=== PATIENT | female | born 1940 | race American Indian/Alaskan Native ===

== ENCOUNTER 2016-08-21 12:47 | Outpatient (CLI) | payer MEDICARE ==
[2016-08-21 13:08] LABS: INR 3.38 (0.87-1.13)
== END 2016-08-21 12:48 | disposition home or self-care (01) ==
LOC: LAB 12:47
PROVIDERS: ATTEND Surgery
DX: I48.91 Unspecified atrial fibrillation (principal)
CPT/HCPCS: 36415; 85610

== ENCOUNTER 2016-08-25 11:46 | Outpatient (CLI) | payer OTHER | END 2016-08-25 11:47 | disposition home or self-care (01) | LOC: FBHC 11:46 → LAB 11:46 → FBHC 11:47 → EDSTATUS 16:41 | PROVIDERS: ATTEND Surgery | DX: N63 Unspecified lump in breast (principal) | CPT/HCPCS: 88305 ==

== ENCOUNTER 2016-09-10 07:17 | Day surgery (SDC) | payer MEDICARE ==
[2016-09-10] MEDS ORDERED: ECOTRIN PO ONE (07:39)
[2016-09-10] MEDS ORDERED: NACL 0.9% 500 ML 500 ML IV SCH (08:00)
[2016-09-10 08:07] LABS: Hematocrit 33.5 % (30.3-42.9); Hemoglobin 10.7 gm/dl (10.1-14.3); Mean Corpuscular HGB Conc 32 % (30-34); Mean Corpuscular Hemoglobin 27 pg (28-32); Mean Corpuscular Volume 84 fl (79-97); Platelet Count 161 K/mm3 (140-440); Red Blood Count 3.98 M/mm3 (3.65-5.03); White Blood Count 3.1 K/mm3 (4.5-11.0)
[2016-09-10 08:12] LABS: Red Cell Distribution Width 26.1 % (13.2-15.2)
[2016-09-10 08:16] LABS: INR 1.2 (0.87-1.13)
[2016-09-10 08:31] LABS: Anion Gap 15 mmol/L; BUN/Creatinine Ratio 16.25; Blood Urea Nitrogen 13 mg/dL (7-17); Calcium 10.1 mg/dL (8.4-10.2); Carbon Dioxide 24 mmol/L (22-30); Chloride 105.8 mmol/L (98-107); Glucose 85 mg/dL (65-100); Sodium 141 mmol/L (137-145)
[2016-09-10] MEDS ORDERED: HEPARIN/NS 5000 UNIT/500ML(CATH LAB) 1,000 ML IR ONE (08:45)
[2016-09-10] MEDS: SUBLIMAZE ONE ×2 (08:56→09:19)
[2016-09-10] MEDS: VERSED ONE ×2 (08:56→09:19)
[2016-09-10] MEDS: XYLOCAINE 2% INFILTRATI ONE ×2 (08:57→09:22)
[2016-09-10 09:16] LABS: Basophils % (Manual) 0 % (0.0-1.8); Blastocytes % (Manual) 0 %; Eosinophils % (Manual) 0 % (0.0-4.3); Hypochromasia 1+
[2016-09-10 09:17] LABS: Poikilocytosis 1+; Target Cells Few
[2016-09-10 09:20] LABS: Diff Status Complete; Platelet Estimate Consistent w Auto; Schistocytes Few
[2016-09-10] MEDS ORDERED: APRESOLINE ONE (09:45)
--- NOTE | 2016-09-10 10:07 | Short Stay Summary ---
Short Stay Documentation Date of service: 09/10/16 - History H&P: obtained from office - Allergies and Medications Current Medications: Allergies kiwi Allergy (Verified 09/10/16 08:17) Swelling codeine Adverse Reaction (Verified 09/10/16 07:19) Itching FEELS STRANGE,DIZZINESS,NAUSEA MEDICAL TAPE Allergy (Uncoded 09/10/16 07:18) Rash,ITCHING,SORES Home Medications Medication Instructions Recorded Confirmed Last Taken Type Atorvastatin [Lipitor Tab] 80 mg PO QHS 02/17/16 09/10/16 09/09/16 History Enalapril Maleate [Vasotec] 20 mg PO DAILY 02/17/16 09/10/16 09/10/16 History Furosemide [Lasix] 20 mg PO QDAY 02/17/16 09/10/16 09/09/16 History Potassium Chloride [K-Dur] 20 meq PO QDAY #30 tablet 02/17/16 09/10/16 09/09/16 Rx Warfarin Sodium 4 mg PO DAILY 02/17/16 09/10/16 09/04/16 History Warfarin Sodium [Coumadin] 5 mg PO 2XW 02/17/16 09/10/16 09/01/16 History ALBUTEROL Inhaler [VENTOLIN 2 puff INHALATION DAILY PRN 09/10/16 09/10/16 History Inhaler] Metoprolol [Lopressor TAB] 50 mg PO BID 09/10/16 09/10/16 09/09/16 History Active Medications Sodium Chloride (Nacl 0.9% 500 Ml) 500 mls @ 50 mls/hr IV DIRECT CIARA Stop: 09/10/16 17:59 Last Admin: 09/10/16 08:17 Dose: 50 mls/hr - Physical exam General appearance: no acute distress Integumentary: no rash HEENT: Atraumatic Lungs: Clear to auscultation Breasts: deferred Heart: Regular rate Gastrointestinal: normal Female Genitourinary: deferred Rectal Exam: deferred Extremities: no ischemia Neurological: Normal gait - Brief post op/procedure progress note Date of procedure: 09/10/16 Pre-op diagnosis: Cardiomyopathy Post-op diagnosis: same Procedure: LHC, RHC, LV gram Anesthesia: MAC Findings: See report Surgeon: MARCOS COE Estimated blood loss: none Pathology: none Condition: stable - Hospital course Hospital course: Uneventful - Disposition Condition at discharge: Good Disposition: DISCHARGED TO HOME OR SELFCARE Short Stay Discharge Plan Activity: no driving until cleared by PCP (or 2 days) Weight Bearing Status: Non-Weight Bearing (for 2 days) Diet: low fat, low cholesterol, low salt Wound: keep clean and dry Follow up with: JAE STANLEY MD [Primary Care Provider] - 7 Days Forms: CardCath PCI D/C Instructions
--- NOTE | 2016-09-10 11:05 | Cardiac Catherization Report ---
LEFT HEART CATHETERIZATION AND RIGHT HEART CATHETERIZATION INDICATION: Cardiomyopathy. ORDERING PHYSICIAN: Kelly Newberry MD PROCEDURES PERFORMED: 1. Selective left and right coronary angiography. 2. Left ventriculography. 3. Right heart catheterization with hemodynamic measurement and oxygen saturation run. DESCRIPTION OF PROCEDURE: After obtaining written consent, the patient was draped using sterile technique. A 2% lidocaine was injected into the right groin. A 6-Kenyan vascular sheath was inserted into the right common femoral artery. An 8-Kenyan vascular sheath was inserted into the right common femoral vein. A 6-Kenyan JL4 catheter was used to selectively engage the left coronary artery. A 6-Kenyan JR4 catheter was used to selectively engage the right coronary artery. A 7-Kenyan [place]-Sam[place] catheter was used to measure right-sided hemodynamics and perform an oxygen saturation run. A 6-Kenyan pigtail catheter was used to perform a left ventriculogram. No complications occurred during the procedure. Hemostasis was achieved at the end of the procedure using 6-Kenyan Angio-Seal device. ESTIMATED BLOOD LOSS: Minimal. SPECIMEN REMOVED: None. TOTAL CONTRAST USED: 30 mL. CARDIAC STRUCTURES: The left ventricle is mildly dilated. There was moderate global left ventricular hypokinesis. The left ventricular ejection fraction is estimated at 30%. There is evidence of 1-2+ mitral regurgitation suggesting mild to moderate MR. HEMODYNAMICS: 1. The mean pulmonary capillary wedge pressure was 16 mmHg. 2. The mean pulmonary artery pressure was 28 mmHg. The pulmonary artery systolic pressure was 45 mmHg and the diastolic pressure was 16 mmHg. 3. The right ventricular systolic pressure was 44 mmHg and the right ventricular end-diastolic pressure was 5 mmHg. 4. The mean right arterial pressure was 7 mmHg. 5. The aortic pressure was 162/70 with an LV systolic pressure of 175 mmHg and left ventricular end-diastolic pressure of mmHg. 6. The superior vena cava saturation was 67%, pulmonary artery saturation was 65%, right ventricular saturation is 65%, right atrial saturation is 67%, and aortic saturation 90%. 7. The Seferino cardiac output was 6.91 L per minute with a cardiac index of 3.97 L per minute per m sq. CORONARY ANATOMY: 1. This is a right dominant circulation. 2. The left main is angiographically normal. 3. The LAD is angiographically normal. 4. The left circumflex artery is angiographically normal. 5. The right coronary artery is angiographically normal. IMPRESSION: 1. Angiographically normal coronary arteries. 2. Moderate global left ventricular hypokinesis with an ejection fraction estimated at 30%. 3. Mild to moderate mitral regurgitation. 4. Mildly elevated left-sided filling pressures with a mean pulmonary capillary wedge pressure of 16 mmHg and left ventricular end-diastolic pressure of mmHg. 5. Mild pulmonary venous hypertension with a mean PA pressure of 28 mmHg. 6. Preserved cardiac output and cardiac index. 7. No evidence of an intracardiac shunt. RECOMMENDATIONS: The patient will be recommended for continuation of her medical therapy for nonischemic cardiomyopathy. JOB# [id number] DIONNA/JOSELIN
[2016-09-10] MEDS ORDERED: ZOFRAN ONE (11:28)
[2016-09-10 11:50] VITALS: BP 147/74
[2016-09-10] MEDS ORDERED: ZOFRAN IV ONE (12:00)
== END 2016-09-10 12:31 | disposition home or self-care (01) ==
LOC: OPU 07:17
PROVIDERS: ATTEND Internal Medicine
DX: I42.9 Cardiomyopathy, unspecified (principal); I34.0 Nonrheumatic mitral (valve) insufficiency; I27.2 Other secondary pulmonary hypertension; M19.90 Unspecified osteoarthritis, unspecified site; I50.22 Chronic systolic (congestive) heart failure; I48.1 Persistent atrial fibrillation; Z79.01 Long term (current) use of anticoagulants
CPT/HCPCS: 36415; 80048; 85007; 85025; 85610; 85730; 93005; 93010; 93460; 96374; C1760; C1894; J0360; J1644; J2250; J2405; J3010; J7040; Q9967

== ENCOUNTER 2017-03-10 13:01 | Outpatient (CLI) | payer MEDICARE ==
--- NOTE | 2017-03-10 13:55 | Mammography Report ---
Bilateral mammogram: Compared to 03/07/16. CAD study utilized. Findings: Bilateral dense breast parenchyma. Bilateral benign calcifications. No distinct mass. Benign axilla. A Impression: Benign findings. Annual followup recommended. BI-RADS CATEGORY: 2 = Benign ACR BI-RADS MAMMOGRAPHIC CODES: 0 = Needs additional imaging evaluation; 1 = Negative; 2 = Benign; 3 = Probably benign; 4 = Suspicious; 5 = Malignant; 6 = Known biopsy-proven malignancy COMMENT: 1. Dense breast tissue, i.e., adenosis, fibrocystic changes, etc., may obscure an underlying neoplasm. 2. Approximately 10% of cancers are not detected with mammography. 3. A negative mammography report should not delay biopsy if a clinically suspicious mass is present. COMMENT: Patient follow-up letters are generated in [employer]. The
== END 2017-03-10 13:02 | disposition home or self-care (01) ==
LOC: SPVWC 13:01
PROVIDERS: ATTEND Surgery
DX: Z12.31 Encounter for screening mammogram for malignant neoplasm of breast (principal); I11.0 Hypertensive heart disease with heart failure; I50.9 Heart failure, unspecified; E78.00 Pure hypercholesterolemia, unspecified; I48.91 Unspecified atrial fibrillation; Z90.710 Acquired absence of both cervix and uterus
CPT/HCPCS: 77067; G0202

== ENCOUNTER 2017-07-13 16:20 | Emergency (ER) | payer MEDICARE ==
[2017-07-13] MEDS ORDERED: KEFLEX PO ONE (20:04)
[2017-07-13] MEDS ORDERED: TYLENOL PO ONE (20:04)
--- NOTE | 2017-07-13 20:06 | Emergency Department Report ---
ED Lower Extremity HPI - General Chief Complaint: Extremity Injury, Lower Stated Complaint: RIGHT LEG PAIN Time Seen by Provider: 07/13/17 19:36 Source: patient, family Mode of arrival: Ambulatory Limitations: No Limitations - History of Present Illness Initial Comments: Patient here reports that she hit her right ortega while getting in the back of an ambulance on 07/10/2017. Patient said that she was accompanying her family member to the hospital. Patient said she has bruises in and swelling to the area on her right ortega. He reports pain 8 out of 10 and a cane. No over-the- counter pain medication taken. Patient is on blood thinners for atrial fibrillation. She has a history of congestive heart failure and denies any chest pain or shortness of breath. She denies any cough. Denies any fever or chills. Pain is localized to injury site. She said pain is throbbing and worse with movement better with rest. Patient states she cannot take Motrin so she's been placing ice around the site. She is able to bear weight but reports that it's painful. Denies any numbness or tingling to extremities. She denies any fever or chills. Denies any nausea or vomiting. Denies any circulation problems. Denies any diabetes. Positive restriction in movement. MD Complaint: leg injury (rt leg pain from injury) Onset/Timin -: days(s) Injury: Leg: Right (injury with swelling, bruising and pain.) Type of Injury: blunt Place: street/outdoors Severity: severe Severity scale (0 -10): 10 Improves With: cold therapy Worsens With: weight bearing, movement, palpation Context: direct blow Associated Symptoms: swelling, ambulatory. denies: snap/pop sensation, numbness , tingling, unable to bear weight, able to partially bear weight Treatments Prior to Arrival: cold therapy - Related Data Home Medications Medication Instructions Recorded Confirmed Last Taken Atorvastatin [Lipitor] 80 mg PO QHS 02/17/16 09/10/16 09/09/16 Enalapril Maleate [Vasotec] 20 mg PO DAILY 02/17/16 09/10/16 09/10/16 Furosemide [Lasix TAB] 20 mg PO QDAY 02/17/16 09/10/16 09/09/16 Warfarin Sodium 4 mg PO DAILY 02/17/16 09/10/16 09/04/16 Warfarin Sodium [Coumadin] 5 mg PO 2XW 02/17/16 09/10/16 09/01/16 ALBUTEROL Inhaler(NF) [VENTOLIN 2 puff INHALATION DAILY PRN 09/10/16 09/10/16 Inhaler(NF)] Metoprolol [Lopressor TAB] 50 mg PO BID 09/10/16 09/10/16 09/09/16 Previous Rx's Medication Instructions Recorded Last Taken Type Potassium Chloride [K-Dur] 20 meq PO QDAY #30 tablet 02/17/16 09/09/16 Rx Acetaminophen [Tylenol Extra 500 mg PO Q8H PRN 4 Days #12 tablet 07/13/17 Unknown Rx Strength] Cephalexin [Keflex] 500 mg PO Q8HR 7 Days #21 cap 07/13/17 Unknown Rx Allergies Allergy/AdvReac Type Severity Reaction Status Date / Time kiwi Allergy Swelling Verified 09/10/16 08:17 codeine AdvReac Itching Verified 09/10/16 07:19 MEDICAL TAPE Allergy Rash,ITCHIN Uncoded 09/10/16 07:18 G,SORES ED Review of Systems ROS: Stated complaint: RIGHT LEG PAIN Other details as noted in HPI Comment: All other systems reviewed and negative Constitutional: no symptoms reported Respiratory: no symptoms reported Cardiovascular: denies: chest pain, palpitations, dyspnea on exertion, orthopnea , edema, syncope, paroxysmal nocturnal dyspnea Gastrointestinal: denies: abdominal pain, nausea, vomiting, diarrhea, constipation, hematemesis, melena, hematochezia Musculoskeletal: arthralgia. denies: back pain, joint swelling, myalgia Skin: denies: rash Neurological: denies: headache, weakness, numbness, paresthesias, confusion, abnormal gait, vertigo ED Past Medical Hx - Past Medical History Previous Medical History?: Yes Hx Hypertension: Yes Hx Congestive Heart Failure: Yes Hx Arthritis: Yes Additional medical history: afib, benign breast cysts, elevated cholesterol - Surgical History Past Surgical History?: Yes Additional Surgical History: hysterectomy, right knee - Family History Family history: no significant - Social History Smoking Status: Never Smoker Substance Use Type: None - Medications Home Medications: Home Medications Medication Instructions Recorded Confirmed Last Taken Type Atorvastatin [Lipitor] 80 mg PO QHS 02/17/16 09/10/16 09/09/16 History Enalapril Maleate [Vasotec] 20 mg PO DAILY 02/17/16 09/10/16 09/10/16 History Furosemide [Lasix TAB] 20 mg PO QDAY 02/17/16 09/10/16 09/09/16 History Potassium Chloride [K-Dur] 20 meq PO QDAY #30 tablet 02/17/16 09/10/16 09/09/16 Rx Warfarin Sodium 4 mg PO DAILY 02/17/16 09/10/16 09/04/16 History Warfarin Sodium [Coumadin] 5 mg PO 2XW 02/17/16 09/10/16 09/01/16 History ALBUTEROL Inhaler(NF) [VENTOLIN 2 puff INHALATION DAILY PRN 09/10/16 09/10/16 History Inhaler(NF)] Metoprolol [Lopressor TAB] 50 mg PO BID 09/10/16 09/10/16 09/09/16 History Acetaminophen [Tylenol Extra 500 mg PO Q8H PRN 4 Days #12 tablet 07/13/17 Unknown Rx Strength] Cephalexin [Keflex] 500 mg PO Q8HR 7 Days #21 cap 07/13/17 Unknown Rx ED Physical Exam - General Limitations: No Limitations General appearance: alert, in no apparent distress - Head Head exam: Present: atraumatic, normocephalic, normal inspection - Eye Eye exam: Present: normal appearance, PERRL, EOMI Pupils: Present: normal accommodation - ENT ENT exam: Present: normal exam, normal orophraynx, mucous membranes moist, TM's normal bilaterally. Absent: mucous membranes dry - Neck Neck exam: Present: normal inspection, full ROM. Absent: tenderness, meningismus, lymphadenopathy, thyromegaly - Respiratory Respiratory exam: Present: normal lung sounds bilaterally. Absent: respiratory distress, wheezes, rales, rhonchi, stridor, chest wall tenderness, accessory muscle use, decreased breath sounds, prolonged expiratory - Cardiovascular Cardiovascular Exam: Present: normal rhythm, irregular rhythm (, asymptomatic and stable irregularly regular), normal heart sounds. Absent: systolic murmur, diastolic murmur - GI/Abdominal GI/Abdominal exam: Present: soft, normal bowel sounds. Absent: distended, tenderness, guarding, rebound, rigid - Extremities Exam Extremities exam: Present: normal inspection, full ROM, tenderness (tenderness to palpate to right ortega anteriorly at injury site.), normal capillary refill, other (patient with no clubbing or cyanosis to extremities. Neurovascular compromise. +2 pulses all extremities. No joint deformity, crepitus or effusion. +5 strength all extremities. She denies the ambulates without any difficulties . with swelling to right leg.). Absent: pedal edema, joint swelling, calf tenderness - Expanded Lower Extremity Exam Right Hip exam: Present: normal inspection, full ROM, pelvic stability. Absent: tenderness, swelling, abrasion, laceration, ecchymosis, deformity, crepidus, dislocation, erythema, external rotation, internal rotation, shortening Upper Leg exam: Present: normal inspection, full ROM. Absent: tenderness, swelling, abrasion, laceration, ecchymosis, deformity, crepidus, dislocation, erythema Knee exam: Present: normal inspection, full ROM, full knee extension. Absent: tenderness, swelling, abrasion, laceration, ecchymosis, deformity, crepidus, dislocation, erythema, effusion, pain w/ pronation/supination, posterior draw sign, pain/laxity with valgus, pain/laxity with varus Lower Leg exam: Present: normal inspection, full ROM, tenderness, swelling ( patient with swelling to right lower leg mostly around injured sites but extended distally and proximally. Negative Homans sign and no calf tenderness) , ecchymosis, dislocation. Absent: abrasion, laceration, deformity, crepidus, erythema, palpable cord, Aaysuh's sign Ankle exam: Present: normal inspection, full ROM. Absent: tenderness, swelling , abrasion, laceration, ecchymosis, deformity, crepidus, dislocation, erythema, anterior draw sign Foot/Toe exam: Present: normal inspection, full ROM. Absent: tenderness, swelling, abrasion, laceration, ecchymosis, deformity, crepidus, dislocation, erythema, amputation, puncture wound, foreign body, calcaneal tenderness, tenderness at base of 5th metatarsal, nail avulsion, subungual hematoma Neuro vascular tendon exam: Present: no vascular compromise. Absent: pulse deficit, abnormal cap refill, motor deficit, sensory deficit, tendon deficit, extremity cold to touch, pallor, abnormal 2-point discrimination, decreased fine /light touch, foot drop, peroneal nerve deficit, significant pain with passive ROM of distal joint Gait: Positive: observed and limited by pain - Back Exam Back exam: Present: normal inspection, full ROM, other. Absent: tenderness, CVA tenderness (R), CVA tenderness (L), muscle spasm, paraspinal tenderness, vertebral tenderness, rash noted - Neurological Exam Neurological exam: Present: alert, oriented X3, normal gait, reflexes normal. Absent: motor sensory deficit - Psychiatric Psychiatric exam: Present: normal affect, normal mood - Skin Skin exam: Present: warm, dry, intact, ecchymosis (superficial ecchymotic area to right ortega area. Tender to palpate. Mild cellulitis.). Absent: normal color, rash, cyanosis, diaphoretic, erythema, urticaria, vesicles, pallor ED Course Vital Signs 07/13/17 16:22 Temperature 98.5 F Pulse Rate 75 Respiratory 16 Rate Blood Pressure 160/75 O2 Sat by Pulse 100 Oximetry - Reevaluation(s) Reevaluation #1: 07/13/17 21:46 given Keflex 500 mg by mouth in the emergency room. Patient with right lower extremity swelling status post injury. She is on blood thinner for A. fib and PT/INR and PTT done. INR is 2.11.. Obesity with normal white count. Sedimentation rate shows soft tissue swelling without any bony abnormality. It was given Tylenol 650 mg her pain. She cannot take Motrin per patient and family. ED Lower Extremity MDM - Lab Data Result diagrams: 07/13/17 20:09 Lab Results 07/13/17 07/13/17 Range/Units 20:09 20:09 WBC 4.5 (4.5-11.0) K/mm3 RBC 3.70 (3.65-5.03) M/mm3 Hgb 10.4 (10.1-14.3) gm/dl Hct 31.8 (30.3-42.9) % MCV 86 (79-97) fl MCH 28 (28-32) pg MCHC 33 (30-34) % RDW 25.3 H (13.2-15.2) % Plt Count 190 (140-440) K/mm3 Add Manual Diff Complete Total Counted 100 Seg Neuts % (Manual) 59.0 (40.0-70.0) % Band Neutrophils % 0 % Lymphocytes % (Manual) 35.0 (13.4-35.0) % Reactive Lymphs % (Man) 0 % Monocytes % (Manual) 6.0 (0.0-7.3) % Eosinophils % (Manual) 0 (0.0-4.3) % Basophils % (Manual) 0 (0.0-1.8) % Metamyelocytes % 0 % Myelocytes % 0 % Promyelocytes % 0 % Blast Cells % 0 % Nucleated RBC % Not Reportable Seg Neutrophils # Man 2.7 (1.8-7.7) K/mm3 Band Neutrophils # 0.0 K/mm3 Lymphocytes # (Manual) 1.6 (1.2-5.4) K/mm3 Abs React Lymphs (Man) 0.0 K/mm3 Monocytes # (Manual) 0.3 (0.0-0.8) K/mm3 Eosinophils # (Manual) 0.0 (0.0-0.4) K/mm3 Basophils # (Manual) 0.0 (0.0-0.1) K/mm3 Metamyelocytes # 0.0 K/mm3 Myelocytes # 0.0 K/mm3 Promyelocytes # 0.0 K/mm3 Blast Cells # 0.0 K/mm3 WBC Morphology Not Reportable Hypersegmented Neuts Not Reportable Hyposegmented Neuts Not Reportable Hypogranular Neuts Not Reportable Smudge Cells Not Reportable Toxic Granulation Not Reportable Toxic Vacuolation Not Reportable Dohle Bodies Not Reportable Pelger-Huet Anomaly Not Reportable Blair Rods Not Reportable Platelet Estimate Consistent w auto Clumped Platelets Not Reportable Plt Clumps, EDTA Not Reportable Large Platelets Not Reportable Giant Platelets Not Reportable Platelet Satelliting Not Reportable Plt Morphology Comment Not Reportable RBC Morphology Not Reportable Dimorphic RBCs Not Reportable Polychromasia Not Reportable Hypochromasia Not Reportable Poikilocytosis Not Reportable Anisocytosis 2+ Microcytosis Not Reportable Macrocytosis Not Reportable Spherocytes Not Reportable Pappenheimer Bodies Not Reportable Sickle Cells Not Reportable Target Cells Few Tear Drop Cells Rare Ovalocytes 1+ Helmet Cells Not Reportable Myles-Huntington Bodies Not Reportable [place] Rings Not Reportable Va Cells Not Reportable Bite Cells Not Reportable Crenated Cell 1+ Elliptocytes Few Acanthocytes (Spur) 1+ Rouleaux Not Reportable Hemoglobin C Crystals Not Reportable Schistocytes 1+ Malaria parasites Not Reportable Mario Bodies Not Reportable Hem Pathologist Commnt No PT 24.9 H (12.2-14.9) Sec. INR 2.11 H (0.87-1.13) APTT 48.8 H (24.2-36.6) Sec. - Radiology Data Radiology results: report reviewed X-ray right tib-fib reveals soft tissue swelling without any bony abnormalities - Medical Decision Making ED course: She is status post injury to right ortega with swelling to right leg proximally and distally. Localized tenderness around injured side without any calf tenderness. She injured her right leg while trying to get into ambulance to accompany her family member to the hospital. Patient says she hit her leg on metal object in the ambulance. This happened 3 days ago and she said she still having pain with bruising on her leg is swollen. Pt is low risk for blood clots to her legs because she is already on blood thinner and her INR is at 2.11. Based on well's criteria patient will need ultrasound Doppler of her right lower extremity due to swelling to right lower extremity. X-ray of her right tib-fib reveal no bony of the amount the with mild soft tissue swelling and patient will mild cellulitis surrounding injured side to right ortega. He has negative Homans sign and negative calf tenderness. Patient without any chest pain or shortness of breath. Discussed with patient and family that patient is already on productive which is her INR is at 2.11 which means her blood is thin and makes her risk for developing a blood clot very low. I discussed with them since she has limbs well and she will need to have an ultrasound which I will schedule for her for outpatient tomorrow. Discussed diagnosis, treatment plan and follow-up plan and they are all in agreement. Patient was given Keflex 500 mg, Tylenol 650 mg. Her white count is normal. Patient will be discharged home to follow up with outpatient ultrasound on 07/14, prescription for Keflex and Tylenol plain. I discussed with her based on ultrasound results if positive then they will send her back to the emergency room and if is negative then she'll need to follow-up with her primary care physician which she does have 1 in 2-3 days for follow-up injury to left leg with contusion and mild cellulitis. They all voiced understanding the discharge instruction and treatment plan and patient discharged home with her family in stable condition. Critical care attestation.: If time is entered above; I have spent that time in minutes in the direct care of this critically ill patient, excluding procedure time. ED Disposition Clinical Impression: Right leg swelling, Leg pain, right Contusion of right lower leg Qualifiers: Encounter type: initial encounter Qualified Code(s): S80.11XA - Contusion of right lower leg, initial encounter Disposition: DC- TO HOME OR SELFCARE Is pt being admited?: No Does the pt Need Aspirin: No Condition: Stable Additional Instructions: Please refer to vascular lab appointment information for follow-up vascular lab tomorrow. Please call outpatient vascular lab at 9 AM in the morning to have appointment on 07/14/2017 to evaluate for blood clot to your right lower extremity due to swelling from injury. If you develop, shortness of breath, chest pain and increased swelling or redness G leg please return to the emergency room otherwise follow-up if primary care physician in 2-3 days The vascular lab will let you know where the need to return to the emergency room after your ultrasound tomorrow or you can go home. you can take Tylenol to manage her pain. elevate Affected area elevated. Prescriptions: Acetaminophen [Tylenol Extra Strength] 500 mg PO Q8H PRN 4 Days #12 tablet PRN Reason: Pain Cephalexin [Keflex] 500 mg PO Q8HR 7 Days #21 cap Referrals: your, primary care physician [Other] - 2-3 Days outpatient, vascular lab [Other] - 07/14/17 9:00 am (Please go to outpatient vascular lab tomorrow after 9 AM and before 4 PM. Call prior to arriving. This is where he'll get your ultrasound of your right leg. Please brain appointment she was given Q in emergency room to your appointment.) Forms: Accompanied Note
[2017-07-13 20:33] LABS: Hematocrit 31.8 % (30.3-42.9); Hemoglobin 10.4 gm/dl (10.1-14.3); Mean Corpuscular HGB Conc 33 % (30-34); Mean Corpuscular Hemoglobin 28 pg (28-32); Mean Corpuscular Volume 86 fl (79-97); Platelet Count 190 K/mm3 (140-440); White Blood Count 4.5 K/mm3 (4.5-11.0)
[2017-07-13 20:46] LABS: Red Cell Distribution Width 25.3 % (13.2-15.2)
[2017-07-13 20:50] LABS: INR 2.11 (0.87-1.13)
[2017-07-13 20:51] LABS: Partial Thromboplastin Time 48.8 Sec. (24.2-36.6)
--- NOTE | 2017-07-13 21:28 | XRay Report ---
FINAL REPORT EXAM: XR TIBIA FIBULA 2V RT HISTORY: RT ORTEGA INJURY WITH SWELLING, PAIN, ttp TECHNIQUE: AP and lateral portable views of the right tibia and fibula PRIORS: None. FINDINGS: There is no evidence for acute fracture or dislocation. There is focal soft tissue swelling along the anterior aspect of the distal ortega. No radiopaque foreign bodies are seen. Bony mineralization is normal and joint spaces are maintained. IMPRESSION: No acute bony abnormality noted. Focal soft tissue swelling along the anterior aspect of the distal ortega.
[2017-07-13 21:31] LABS: Basophils % (Manual) 0 % (0.0-1.8); Blastocytes % (Manual) 0 %; Eosinophils % (Manual) 0 % (0.0-4.3)
[2017-07-13 21:32] LABS: Acanthocytes 1+; Anisocytosis 2+; Schistocytes 1+; Target Cells Few
[2017-07-13 21:34] LABS: Elliptocytes Few; Ovalocytes 1+; Platelet Estimate Consistent w Auto; Tear Drop Cells Rare
[2017-07-13 21:35] LABS: Crenated RBC 1+; Diff Status Complete
[2017-07-14 01:06] VITALS: BP 130/71
== END 2017-07-13 22:10 | disposition home or self-care (01) ==
LOC: ED 16:20
DX: S80.11XA Contusion of right lower leg, initial encounter (principal); I10 Essential (primary) hypertension; I50.9 Heart failure, unspecified; M19.90 Unspecified osteoarthritis, unspecified site; Z90.710 Acquired absence of both cervix and uterus; Z88.5 Allergy status to narcotic agent; Z91.018 Allergy to other foods; X58.XXXA Exposure to other specified factors, initial encounter; Y93.89 Activity, other specified; Y92.89 Other specified places as the place of occurrence of the external cause; Y99.8 Other external cause status
CPT/HCPCS: 36415; 85007; 85025; 85610; 85730; 99283

== ENCOUNTER 2017-07-14 11:49 | Outpatient (CLI) | payer MEDICARE ==
--- NOTE | 2017-07-15 13:06 | Vascular Lab Report ---
Right Lower Extremity Venous Duplex Study: Reason for Exam: Pain and swelling of the right lower extremity. Comments on the Right: All veins visualized are freely compressible without evidence of internal echogenicity. Flow is spontaneous and phasic throughout. No evidence of acute or chronic thrombus is seen in any of the vessels visualized. Nonspecific soft tissue changes are noted on the anterior calf distally. This may be a hematoma. Comments on the Left: A limited duplex study was done of the proximal veins of the left lower extremity. All veins visualized are freely compressible without evidence of internal echogenicity. Flow is spontaneous and phasic throughout. No evidence of acute or chronic thrombus is seen in any of the vessels visualized. Impression: No evidence of acute or chronic deep venous thrombosis in the right lower extremity. Possible hematoma right anterior calf.
== END 2017-07-14 11:50 | disposition home or self-care (01) ==
LOC: VAS 11:49
PROVIDERS: ATTEND Nurse Practitioner Family
DX: M79.661 Pain in right lower leg (principal); M79.89 Other specified soft tissue disorders; I11.0 Hypertensive heart disease with heart failure; I50.9 Heart failure, unspecified; I48.91 Unspecified atrial fibrillation

== ENCOUNTER 2017-12-27 12:52 | Inpatient (IN) | payer MEDICARE ==
[2017-12-27 13:30] LABS: Hemoglobin 6.5 gm/dl (10.1-14.3); Mean Corpuscular HGB Conc 33 % (30-34); Mean Corpuscular Hemoglobin 28 pg (28-32); Mean Corpuscular Volume 86 fl (79-97); Platelet Count 192 K/mm3 (140-440); Red Blood Count 2.29 M/mm3 (3.65-5.03)
[2017-12-27 13:37] LABS: Hematocrit 19.7 % (30.3-42.9); Red Cell Distribution Width 28.5 % (13.2-15.2)
[2017-12-27 13:43] LABS: Alanine Aminotransferase 26 units/L (7-56); Albumin 3.6 g/dL (3.9-5); BUN/Creatinine Ratio 21; Blood Urea Nitrogen 19 mg/dL (7-17); Calcium 9.3 mg/dL (8.4-10.2); Hemolysis Index 2; Lipase 65 units/L (13-60)
[2017-12-27 14:16] LABS: Basophils % (Manual) 0 % (0.0-1.8); Eosinophils % (Manual) 0 % (0.0-4.3); Total Cells Counted 100
[2017-12-27 14:17] LABS: Hypochromasia 1+; Target Cells Few; Tear Drop Cells Few
--- NOTE | 2017-12-27 14:17 | Emergency Department Report ---
ED N/V/D HPI - General Chief complaint: Nausea/Vomiting/Diarrhea Stated complaint: LOW BLOOD PRESSURE Time Seen by Provider: 12/27/17 13:40 Source: patient Mode of arrival: Ambulatory Limitations: No Limitations - History of Present Illness Initial comments: Al and his 77-year-old female that presents emergency room with complaints of nausea without vomiting and diarrhea that started a week ago. Patient states she has the urge to vomit but is not able to bring anything up. Patient states she's been feeling weak lately and over the past week she has not gotten better. Patient states she has a history of anemia. Patient denies any pain. Patient denies abdominal pain and chest pain and shortness of breath. Patient states that she has noticed her stool is very dark MD complaint: nausea, diarrhea -: Sudden Description of Diarrhea: tarry Associated Abdominal Pain: No Severity: severe Improves with: rest Worsens with: eating, movement Associated Symptoms: malaise. denies: myalgias, chest pain, cough, diaphoresis , fever/chills, headaches, loss of appetite, rash, dysuria, shortness of breath , syncope, weakness - Related Data Home Medications Medication Instructions Recorded Confirmed Last Taken Atorvastatin [Lipitor] 80 mg PO QHS 02/17/16 09/10/16 09/09/16 Enalapril Maleate [Vasotec] 20 mg PO DAILY 02/17/16 09/10/16 09/10/16 Furosemide [Lasix TAB] 20 mg PO QDAY 02/17/16 09/10/16 09/09/16 Warfarin Sodium 4 mg PO DAILY 02/17/16 09/10/16 09/04/16 Warfarin Sodium [Coumadin] 5 mg PO 2XW 02/17/16 09/10/16 09/01/16 ALBUTEROL Inhaler(NF) [VENTOLIN 2 puff INHALATION DAILY PRN 09/10/16 09/10/16 Inhaler(NF)] Metoprolol [Lopressor TAB] 50 mg PO BID 09/10/16 09/10/16 09/09/16 Previous Rx's Medication Instructions Recorded Last Taken Type Potassium Chloride [K-Dur] 20 meq PO QDAY #30 tablet 02/17/16 09/09/16 Rx Acetaminophen [Tylenol Extra 500 mg PO Q8H PRN 4 Days #12 tablet 07/13/17 Unknown Rx Strength] Cephalexin [Keflex] 500 mg PO Q8HR 7 Days #21 cap 07/13/17 Unknown Rx Allergies Allergy/AdvReac Type Severity Reaction Status Date / Time kiwi Allergy Swelling Verified 09/10/16 08:17 codeine AdvReac Itching Verified 09/10/16 07:19 MEDICAL TAPE Allergy Rash,ITCHIN Uncoded 09/10/16 07:18 G,SORES ED Review of Systems ROS: Stated complaint: LOW BLOOD PRESSURE Other details as noted in HPI Constitutional: weakness Eyes: denies: eye pain, eye discharge, vision change ENT: denies: ear pain, throat pain Respiratory: denies: cough, shortness of breath, wheezing Cardiovascular: denies: chest pain, palpitations Endocrine: no symptoms reported Gastrointestinal: nausea, diarrhea, melena. denies: abdominal pain, vomiting Genitourinary: denies: urgency, dysuria, discharge Musculoskeletal: denies: back pain, joint swelling, arthralgia Skin: denies: rash, lesions Neurological: weakness. denies: headache, paresthesias Psychiatric: denies: anxiety, depression Hematological/Lymphatic: denies: easy bleeding, easy bruising ED Past Medical Hx - Past Medical History Previous Medical History?: Yes Hx Hypertension: Yes Hx Congestive Heart Failure: Yes Hx Arthritis: Yes Additional medical history: afib, benign breast cysts, elevated cholesterol - Surgical History Past Surgical History?: Yes Additional Surgical History: hysterectomy, right knee - Family History Family history: hypertension - Social History Smoking Status: Never Smoker Substance Use Type: None - Medications Home Medications: Home Medications Medication Instructions Recorded Confirmed Last Taken Type Atorvastatin [Lipitor] 80 mg PO QHS 02/17/16 09/10/16 09/09/16 History Enalapril Maleate [Vasotec] 20 mg PO DAILY 02/17/16 09/10/16 09/10/16 History Furosemide [Lasix TAB] 20 mg PO QDAY 02/17/16 09/10/16 09/09/16 History Potassium Chloride [K-Dur] 20 meq PO QDAY #30 tablet 02/17/16 09/10/16 09/09/16 Rx Warfarin Sodium 4 mg PO DAILY 02/17/16 09/10/16 09/04/16 History Warfarin Sodium [Coumadin] 5 mg PO 2XW 07/09/10/16 09/01/16 History ALBUTEROL Inhaler(NF) [VENTOLIN 2 puff INHALATION DAILY PRN 09/10/16 09/10/16 History Inhaler(NF)] Metoprolol [Lopressor TAB] 50 mg PO BID 09/10/16 09/10/16 09/09/16 History Acetaminophen [Tylenol Extra 500 mg PO Q8H PRN 4 Days #12 tablet 07/13/17 Unknown Rx Strength] Cephalexin [Keflex] 500 mg PO Q8HR 7 Days #21 cap 07/13/17 Unknown Rx ED Physical Exam - General Limitations: No Limitations General appearance: alert, in no apparent distress - Head Head exam: Present: atraumatic, normocephalic - Eye Eye exam: Present: normal appearance, other (pale sclera) - ENT ENT exam: Present: mucous membranes moist - Neck Neck exam: Present: normal inspection - Respiratory Respiratory exam: Present: normal lung sounds bilaterally. Absent: respiratory distress - Cardiovascular Cardiovascular Exam: Present: regular rate, normal rhythm. Absent: systolic murmur, diastolic murmur, rubs, gallop - GI/Abdominal GI/Abdominal exam: Present: soft, normal bowel sounds - Rectal Rectal exam: Present: heme (+) stool, black stool, hemorrhoids - Extremities Exam Extremities exam: Present: normal inspection - Back Exam Back exam: Present: normal inspection - Neurological Exam Neurological exam: Present: alert, oriented X3 - Psychiatric Psychiatric exam: Present: normal affect, normal mood - Skin Skin exam: Present: warm, dry, intact, normal color. Absent: rash ED Course Vital Signs 12/27/17 12/27/17 12:56 13:51 Temperature 98.5 F Pulse Rate 72 80 Respiratory 18 16 Rate Blood Pressure 113/52 Blood Pressure 120/37 [Left] O2 Sat by Pulse 100 100 Oximetry - Reevaluation(s) Reevaluation #1: GI consulted, Dr. Diaz. Dr. Diaz recommends admission and PPI drip. 12/27/17 14:37 Reevaluation #2: Discussed case with hospitalist. Hospitalist consulted for admission. Dr. Marie to admit.Discussed with patient plan of care and admission. Patient agreed to admission. 12/27/17 15:19 ED Medical Decision Making - Lab Data Result diagrams: 12/27/17 13:03 12/27/17 13:03 - Medical Decision Making Patient is 77-year-old patient presented for nausea and dark stool and weakness. Patient found to have a GI bleed and severe anemia. Patient to be admitted to the hospital several with a GI consult - Differential Diagnosis gi bleed. anemia. weakness. Critical Care Time: Yes Critical care attestation.: If time is entered above; I have spent that time in minutes in the direct care of this critically ill patient, excluding procedure time. Critical Care Time: 30 minutes spent for critical care time ED Disposition Clinical Impression: GI bleed, Nausea alone, Diarrhea, Melena Disposition: DC-09 OP ADMIT IP TO THIS HOSP Is pt being admited?: Yes Does the pt Need Aspirin: No Condition: Critical Time of Disposition: 15:45
[2017-12-27 14:19] LABS: Schistocytes Rare
[2017-12-27 14:30] LABS: Bilirubin,Urine NEG (Negative); Blood,Urine NEG (Negative); Color,Urine Yellow (Yellow); Hyaline Casts,Urine 1 /LPF; Mucus,Urine FEW /HPF; Protein,Urine <15 mg/dL mg/dL (Negative); Urobilinogen,Urine < 2.0 mg/dL (<2.0)
--- NOTE | 2017-12-27 15:19 | History and Physical Report ---
History of Present Illness Chief complaint: I have loose stools History of present illness: 77 YO Female with HTN, CHF, OA, Atrial Fib on therpeutic anticoagulation, HLD presents to ED for evaluation. Pt states that she has experienced passing tarry black stools for the past 2 weeks, nausea, and multiple episodes of loose stools. Pt acknowledges feeling weak and tired. Pt transported to [facility] for further care and evaluation. Pt seen and evaluated in ED and found to have GI Bleed complicated by symptomatic anemia, as well as CHF. Pt admitted to telemetry. Pt denies fever, chills, CP, Palpitations, Syncope, Trauma, Shortness of breath, unilateral leg swelling, calf pain, productive cough, or recent ill contacts. GI consulted in ED. Pt admitted to telemetry. Past History Past Medical History: atrial fib, arthritis, heart failure, hypertension, hyperlipidemia Past Surgical History: hysterectomy, total knee replacement Social history: single, lives with family. denies: smoking, alcohol abuse, prescription drug abuse Family history: hypertension Medications and Allergies Allergies Allergy/AdvReac Type Severity Reaction Status Date / Time kiwi Allergy Swelling Verified 09/10/16 08:17 codeine AdvReac Itching Verified 09/10/16 07:19 MEDICAL TAPE Allergy Rash,ITCHIN Uncoded 09/10/16 07:18 G,SORES Home Medications Medication Instructions Recorded Confirmed Last Taken Type Atorvastatin [Lipitor] 80 mg PO QHS 02/17/16 12/27/17 12/27/17 History Furosemide [Lasix TAB] 20 mg PO QDAY 02/17/16 12/27/17 12/27/17 History Carvedilol 12.5 mg PO QDAY 12/27/17 12/27/17 12/27/17 History Potassium Chloride 10 meq PO QDAY 12/27/17 12/27/17 12/27/17 History Rivaroxaban [Xarelto] 20 mg PO QDAY 12/27/17 12/27/17 12/27/17 History Valsartan [Diovan] 320 mg PO QDAY 12/27/17 12/27/17 12/27/17 History Active Meds: Active Medications Pantoprazole Sodium 80 mg/ (Sodium Chloride) 100 mls @ 10 mls/hr IV DIRECT CIARA Review of Systems Constitutional: fatigue, weakness Ears, nose, mouth and throat: no ear pain, no ear discharge, no tinnitis, no decreased hearing, no nose pain Breasts: no change in shape, no swelling, no mass Cardiovascular: no chest pain, no orthopnea, no palpitations, no rapid/ irregular heart beat Respiratory: no cough with sputum, no excessive sputum, no hemoptysis Gastrointestinal: nausea, diarrhea, BRBPR, melena, no abdominal pain, no constipation, no coffee ground emesis, no loss of appetite, no excessive gas, no jaundice Genitourinary Female: no pelvic pain, no flank pain, no menorrhagia, no dysuria , no urinary frequency Rectal: no pain, no incontinence, no bleeding Musculoskeletal: no neck stiffness, no neck pain, no shooting arm pain, no arm numbness/tingling, no low back pain, no shooting leg pain Integumentary: no rash, no pruritis, no redness, no sores, no wounds Neurological: no paralysis, no weakness, no parathesias, no numbness, no tingling Psychiatric: no anxiety, no memory loss, no change in sleep habits, no sleep disturbances, no insomnia, no hypersomnia Endocrine: no cold intolerance, no heat intolerance, no polyphagia, no excessive thirst, no polydipsia, no polyuria, no nocturia Hematologic/Lymphatic: no easy bruising, no easy bleeding, no lymphadenopathy, no lymphedema Allergic/Immunologic: no urticaria, no allergic rhinitis, no wheezing, no persistent infections, no anaphylaxis Exam - Constitutional Vitals: Temp Pulse Resp BP Pulse Ox 98.5 F 80 16 120/37 100 12/27/17 12:56 12/27/17 13:51 12/27/17 13:51 12/27/17 13:51 12/27/17 13:51 General appearance: Present: mild distress - EENT Eyes: Present: PERRL (conjunctival pallor) ENT: hearing intact, clear oral mucosa - Neck Neck: Present: supple, normal ROM - Respiratory Respiratory effort: normal Respiratory: bilateral: CTA - Cardiovascular Heart Sounds: Present: S1 & S2. Absent: rub, click - Extremities Extremities: pulses symmetrical, No edema Peripheral Pulses: within normal limits - Abdominal General gastrointestinal: Present: soft, non-tender, non-distended, normal bowel sounds Female genitourinary: Present: normal - Integumentary Integumentary: Present: clear, warm, dry - Musculoskeletal Musculoskeletal: generalized weakness - Psychiatric Psychiatric: appropriate mood/affect, intact judgment & insight - Neurologic Neurologic: CNII-XII intact, moves all extremities Results - Labs CBC & Chem 7: 12/27/17 13:03 12/27/17 13:03 Labs: Abnormal lab results 12/27/17 12/27/17 Range/Units 13:03 13:03 RBC 2.29 L (3.65-5.03) M/mm3 Hgb 6.5 L (10.1-14.3) gm/dl Hct 19.7 L* (30.3-42.9) % RDW 28.5 H (13.2-15.2) % Seg Neuts % (Manual) 81.0 H (40.0-70.0) % Lymphocytes # (Manual) 1.0 L (1.2-5.4) K/mm3 Chloride 107.2 H (98-107) mmol/L BUN 19 H (7-17) mg/dL Glucose 113 H (65-100) mg/dL Total Protein 6.0 L (6.3-8.2) g/dL Albumin 3.6 L (3.9-5) g/dL Lipase 65 H (13-60) units/L Assessment and Plan - Patient Problems (1) CHF (congestive heart failure) Current Visit: Yes Status: Acute Qualifiers: Heart failure type: systolic Heart failure chronicity: acute Qualified Code(s): I50.21 - Acute systolic (congestive) heart failure Plan to address problem: Admit to telemetry, Diuresis, strict I/O, monitor uop q shift, daily weight, Chest x ray, cardiology consulted. (2) Anemia Current Visit: Yes Status: Acute Plan to address problem: PRBC transfusion, repeat CBC, (3) Atrial fibrillation Current Visit: Yes Status: Acute Qualifiers: Atrial fibrillation type: persistent Qualified Code(s): I48.1 - Persistent atrial fibrillation Plan to address problem: Continue rate control, admit to telemetry, Hold anticoagulation for 48 hours. (4) GI bleed Current Visit: Yes Status: Acute Qualifiers: GI bleed type/associated pathology: unspecified gastrointestinal hemorrhage type Qualified Code(s): K92.2 - Gastrointestinal hemorrhage, unspecified Plan to address problem: GI consulted in ED, IV ppi therapy, serial cbc, Endoscopy as per GI team, hold anticoagulation for 48 hours, (5) Hyperlipemia Current Visit: Yes Status: Acute Qualifiers: Hyperlipidemia type: mixed hyperlipidemia Qualified Code(s): E78.2 - Mixed hyperlipidemia Plan to address problem: low cholesterol diet, (6) Hypertension Current Visit: Yes Status: Acute Qualifiers: Hypertension type: essential hypertension Qualified Code(s): I10 - Essential (primary) hypertension Plan to address problem: Monitor BP q shift, IV hydralazine PRN (7) DVT prophylaxis Current Visit: Yes Status: Acute Plan to address problem: SCD to BLE while in bed
[2017-12-27 15:36] LABS: INR 1.52 (0.87-1.13)
[2017-12-27 15:37] LABS: Partial Thromboplastin Time 40.6 Sec. (24.2-36.6)
[2017-12-27] MEDS ORDERED: PROVENTIL IH PRN (15:38)
[2017-12-27] MEDS ORDERED: SODIUM CHLORIDE FLUSH SYRINGE 10 ML IV PRN (15:38)
[2017-12-27] MEDS ORDERED: ZOFRAN IV PRN (15:38)
[2017-12-27] MEDS ORDERED: TYLENOL PO PRN (15:40)
--- NOTE | 2017-12-27 17:52 | Gastroenterology Consultation ---
History of Present Illness - Reason for Consult Consult date: 12/27/17 GI bleeding Requesting physician: ROSHAN FOSTER - History of Present Illness The patient is a 77 year old female for whom consultation has been requested for GI bleeding. She reports passing tarry black stools for about 2 weeks and began feeling weak and having nausea, but no vomiting in the past few days. There is no prior history of GI bleeding or PUD. She reports having colonoscopy about a year ago at [facility] and denies any knowledge of specific findings. She was found to have a Hgb of 6.5 on ER presentation and had a stable hemodynamic status. The patient is on Xarelto for A Fib and has a history of mild CHF. Her last dose of Xarelto was yesterday. The patient denies any history of liver disease, smoking, ETOH use. Past History Past Medical History: anemia, hypertension, hyperlipidemia, other (Atrial fibrillation, CHF.) Past Surgical History: Other (fibroid tumors removed x 2.) Social history: no significant social history, lives with family. denies: smoking, alcohol abuse, prescription drug abuse Family history: no significant family history Medications and Allergies Allergies Allergy/AdvReac Type Severity Reaction Status Date / Time kiwi Allergy Swelling Verified 09/10/16 08:17 codeine AdvReac Itching Verified 09/10/16 07:19 MEDICAL TAPE Allergy Rash,ITCHIN Uncoded 09/10/16 07:18 G,SORES Home Medications Medication Instructions Recorded Confirmed Last Taken Type Atorvastatin [Lipitor] 80 mg PO QHS 02/17/16 12/27/17 12/27/17 History Furosemide [Lasix TAB] 20 mg PO QDAY 02/17/16 12/27/17 12/27/17 History Carvedilol 12.5 mg PO QDAY 12/27/17 12/27/17 12/27/17 History Potassium Chloride 10 meq PO QDAY 12/27/17 12/27/17 12/27/17 History Rivaroxaban [Xarelto] 20 mg PO QDAY 12/27/17 12/27/17 12/27/17 History Valsartan [Diovan] 320 mg PO QDAY 12/27/17 12/27/17 12/27/17 History Active Meds: Active Medications Acetaminophen (Tylenol) 650 mg PO Q4H PRN PRN Reason: Pain MILD(1-3)/Fever >100.5/CLARKE Acetaminophen (Tylenol) 500 mg PO Q8H PRN PRN Reason: Pain, Moderate (4-6) Albuterol (Proventil) 2.5 mg IH Q4HRT PRN PRN Reason: Shortness Of Breath Atorvastatin Calcium (Lipitor) 80 mg PO QHS [facility] Furosemide (Lasix) 20 mg PO QDAY [facility] Pantoprazole Sodium 80 mg/ (Sodium Chloride) 100 mls @ 10 mls/hr IV DIRECT [facility] Lisinopril (Zestril) 20 mg PO QDAY [facility] Metoprolol Tartrate (Lopressor) 50 mg PO BID [facility] Ondansetron HCl (Zofran) 4 mg IV Q8H PRN PRN Reason: Nausea And Vomiting Potassium Chloride (K-Dur) 20 meq PO QDAY [facility] Sodium Chloride (Sodium Chloride Flush Syringe 10 Ml) 10 ml IV BID [facility]ARA Sodium Chloride (Sodium Chloride Flush Syringe 10 Ml) 10 ml IV PRN PRN PRN Reason: LINE FLUSH Review of Systems - Review of Systems Constitutional: no weight loss, no weight gain Eyes: no change in vision Ears, Nose, Throat: no difficulty swallowing, no epistaxis, no painful swallowing Breasts: deferred Cardiovascular: no chest pain, no rapid/irregular heart beat, no shortness of breath Respiratory: no cough, no shortness of breath, no wheezing Gastrointestinal: abdominal pain, nausea, melena, no vomiting, no diarrhea, no BRBPR Rectal: no pain, no incontinence Female Genitourinary: deferred Musculoskeletal: no gait dysfunction, no joint pain, no muscle pain Integumentary: no rash, no pruritis Neurological: no head injury, no paralysis Psychiatric: no anxiety, no memory loss Hematologic/Lymphatic: easy bruising, easy bleeding Allergic/Immunologic: no wheezing Exam - Constitutional Vital Signs: Temp Pulse Resp BP Pulse Ox 98.5 F 80 16 120/37 100 12/27/17 12:56 12/27/17 13:51 12/27/17 13:51 12/27/17 13:51 12/27/17 13:51 General appearance: no acute distress, well-nourished - EENT Eyes: PERRL ENT: hearing intact, clear oral mucosa - Neck Neck: supple, normal ROM, no masses or JVD - Respiratory Respiratory effort: normal Respiratory: bilateral: CTA - Breasts Breasts: deferred - Cardiovascular Rhythm: regular Heart Sounds: Present: S1 & S2. Absent: gallop, rub Extremities: pulses intact, No edema, normal color, Full ROM - Gastrointestinal General gastrointestinal: Present: soft, non-tender, non-distended, normal bowel sounds. Absent: hepatomegaly, splenomegaly, mass Rectal Exam: deferred - Genitourinary Female Genitourinary: deferred - Integumentary Integumentary: Present: clear, warm, dry - Neurologic Neurological: alert and oriented x3 - Psychiatric Psychiatric: appropriate mood/affect, intact judgment & insight, memory intact - Labs CBC & Chem 7: 12/27/17 13:03 12/27/17 13:03 Lab Results: Laboratory Results - last 24 hr 12/27/17 12/27/17 12/27/17 13:03 13:03 13:24 WBC 5.6 RBC 2.29 L Hgb 6.5 L Hct 19.7 L* MCV 86 MCH 28 MCHC 33 RDW 28.5 H Plt Count 192 Add Manual Diff Complete Total Counted 100 Seg Neuts % (Manual) 81.0 H Band Neutrophils % 0 Lymphocytes % (Manual) 18.0 Reactive Lymphs % (Man) 0 Monocytes % (Manual) 1.0 Eosinophils % (Manual) 0 Basophils % (Manual) 0 Metamyelocytes % 0 Myelocytes % 0 Promyelocytes % 0 Blast Cells % 0 Nucleated RBC % Not Reportable Seg Neutrophils # Man 4.5 Band Neutrophils # 0.0 Lymphocytes # (Manual) 1.0 L Abs React Lymphs (Man) 0.0 Monocytes # (Manual) 0.1 Eosinophils # (Manual) 0.0 Basophils # (Manual) 0.0 Metamyelocytes # 0.0 Myelocytes # 0.0 Promyelocytes # 0.0 Blast Cells # 0.0 WBC Morphology Not Reportable Hypersegmented Neuts Not Reportable Hyposegmented Neuts Not Reportable Hypogranular Neuts Not Reportable Smudge Cells Not Reportable Toxic Granulation Not Reportable Toxic Vacuolation Not Reportable Dohle Bodies Not Reportable Pelger-Huet Anomaly Not Reportable [place] Rods Not Reportable Platelet Estimate Not Reportable Clumped Platelets Not Reportable Plt Clumps, EDTA Not Reportable Large Platelets Not Reportable Giant Platelets Not Reportable Platelet Satelliting Not Reportable Plt Morphology Comment Not Reportable RBC Morphology Not Reportable Dimorphic RBCs Not Reportable Polychromasia 1+ Hypochromasia 1+ Poikilocytosis Not Reportable Anisocytosis Not Reportable Microcytosis Not Reportable Macrocytosis Not Reportable Spherocytes Not Reportable Pappenheimer Bodies Not Reportable Sickle Cells Not Reportable Target Cells Few Tear Drop Cells Few Ovalocytes Not Reportable Helmet Cells Not Reportable [place] Bodies Not Reportable [place] Not Reportable Va Cells Not Reportable Bite Cells Not Reportable Crenated Cell Not Reportable Elliptocytes Few Acanthocytes (Spur) Not Reportable Rouleaux Not Reportable Hemoglobin C Crystals Not Reportable Schistocytes Rare Malaria parasites Not Reportable Mario Bodies Not Reportable Hem Pathologist Commnt No PT INR APTT Sodium 141 Potassium 4.8 Chloride 107.2 H Carbon Dioxide 26 Anion Gap 13 BUN 19 H Creatinine 0.9 Estimated GFR > 60 BUN/Creatinine Ratio 21 Glucose 113 H Calcium 9.3 Total Bilirubin 0.20 AST 32 ALT 26 Alkaline Phosphatase 92 Total Protein 6.0 L Albumin 3.6 L Albumin/Globulin Ratio 1.5 Lipase 65 H Urine Color Yellow Urine Turbidity Clear Urine pH 5.0 Ur Specific [place] 1.017 Urine Protein <15 mg/dl Urine Glucose (UA) Neg Urine Ketones Neg Urine Blood Neg Urine Nitrite Neg Urine Bilirubin Neg Urine Urobilinogen < 2.0 Ur Leukocyte Esterase Neg Urine WBC (Auto) 3.0 Urine RBC (Auto) 2.0 Hyaline Casts 1 Urine Mucus Few Blood Type Antibody Screen 12/27/17 12/27/17 13:51 15:10 WBC RBC Hgb Hct MCV MCH MCHC RDW Plt Count Add Manual Diff Total Counted Seg Neuts % (Manual) Band Neutrophils % Lymphocytes % (Manual) Reactive Lymphs % (Man) Monocytes % (Manual) Eosinophils % (Manual) Basophils % (Manual) Metamyelocytes % Myelocytes % Promyelocytes % Blast Cells % Nucleated RBC % Seg Neutrophils # Man Band Neutrophils # Lymphocytes # (Manual) Abs React Lymphs (Man) Monocytes # (Manual) Eosinophils # (Manual) Basophils # (Manual) Metamyelocytes # Myelocytes # Promyelocytes # Blast Cells # WBC Morphology Hypersegmented Neuts Hyposegmented Neuts Hypogranular Neuts Smudge Cells Toxic Granulation Toxic Vacuolation Dohle Bodies Pelger-Huet Anomaly [place] Rods Platelet Estimate Clumped Platelets Plt Clumps, EDTA Large Platelets Giant Platelets Platelet Satelliting Plt Morphology Comment RBC Morphology Dimorphic RBCs Polychromasia Hypochromasia Poikilocytosis Anisocytosis Microcytosis Macrocytosis Spherocytes Pappenheimer Bodies Sickle Cells Target Cells Tear Drop Cells Ovalocytes Helmet Cells [place] Bodies [place] Rings Streator Cells Bite Cells Crenated Cell Elliptocytes Acanthocytes (Spur) Rouleaux Hemoglobin C Crystals Schistocytes Malaria parasites Mario Bodies Hem Pathologist Commnt PT 19.2 H INR 1.52 H APTT 40.6 H Sodium Potassium Chloride Carbon Dioxide Anion Gap BUN Creatinine Estimated GFR BUN/Creatinine Ratio Glucose Calcium Total Bilirubin AST ALT Alkaline Phosphatase Total Protein Albumin Albumin/Globulin Ratio Lipase Urine Color Urine Turbidity Urine pH Ur Specific [place] Urine Protein Urine Glucose (UA) Urine Ketones Urine Blood Urine Nitrite Urine Bilirubin Urine Urobilinogen Ur Leukocyte Esterase Urine WBC (Auto) Urine RBC (Auto) Hyaline Casts Urine Mucus Blood Type O POSITIVE Antibody Screen Negative Laboratory Results - last 24 hr 12/27/17 12/27/17 12/27/17 13:03 13:03 13:24 WBC 5.6 RBC 2.29 L Hgb 6.5 L Hct 19.7 L* MCV 86 MCH 28 MCHC 33 RDW 28.5 H Plt Count 192 Add Manual Diff Complete Total Counted 100 Seg Neuts % (Manual) 81.0 H Band Neutrophils % 0 Lymphocytes % (Manual) 18.0 Reactive Lymphs % (Man) 0 Monocytes % (Manual) 1.0 Eosinophils % (Manual) 0 Basophils % (Manual) 0 Metamyelocytes % 0 Myelocytes % 0 Promyelocytes % 0 Blast Cells % 0 Nucleated RBC % Not Reportable Seg Neutrophils # Man 4.5 Band Neutrophils # 0.0 Lymphocytes # (Manual) 1.0 L Abs React Lymphs (Man) 0.0 Monocytes # (Manual) 0.1 Eosinophils # (Manual) 0.0 Basophils # (Manual) 0.0 Metamyelocytes # 0.0 Myelocytes # 0.0 Promyelocytes # 0.0 Blast Cells # 0.0 WBC Morphology Not Reportable Hypersegmented Neuts Not Reportable Hyposegmented Neuts Not Reportable Hypogranular Neuts Not Reportable Smudge Cells Not Reportable Toxic Granulation Not Reportable Toxic Vacuolation Not Reportable Dohle Bodies Not Reportable Pelger-Huet Anomaly Not Reportable Blair Rods Not Reportable Platelet Estimate Not Reportable Clumped Platelets Not Reportable Plt Clumps, EDTA Not Reportable Large Platelets Not Reportable Giant Platelets Not Reportable Platelet Satelliting Not Reportable Plt Morphology Comment Not Reportable RBC Morphology Not Reportable Dimorphic RBCs Not Reportable Polychromasia 1+ Hypochromasia 1+ Poikilocytosis Not Reportable Anisocytosis Not Reportable Microcytosis Not Reportable Macrocytosis Not Reportable Spherocytes Not Reportable Pappenheimer Bodies Not Reportable Sickle Cells Not Reportable Target Cells Few Tear Drop Cells Few Ovalocytes Not Reportable Helmet Cells Not Reportable [place] Bodies Not Reportable [place] Not Reportable [place] Cells Not Reportable Bite Cells Not Reportable Crenated Cell Not Reportable Elliptocytes Few Acanthocytes (Spur) Not Reportable Rouleaux Not Reportable Hemoglobin C Crystals Not Reportable Schistocytes Rare Malaria parasites Not Reportable Mario Bodies Not Reportable Hem Pathologist Commnt No PT INR APTT Sodium 141 Potassium 4.8 Chloride 107.2 H Carbon Dioxide 26 Anion Gap 13 BUN 19 H Creatinine 0.9 Estimated GFR > 60 BUN/Creatinine Ratio 21 Glucose 113 H Calcium 9.3 Total Bilirubin 0.20 AST 32 ALT 26 Alkaline Phosphatase 92 Total Protein 6.0 L Albumin 3.6 L Albumin/Globulin Ratio 1.5 Lipase 65 H Urine Color Yellow Urine Turbidity Clear Urine pH 5.0 Ur Specific [place] 1.017 Urine Protein <15 mg/dl Urine Glucose (UA) Neg Urine Ketones Neg Urine Blood Neg Urine Nitrite Neg Urine Bilirubin Neg Urine Urobilinogen < 2.0 Ur Leukocyte Esterase Neg Urine WBC (Auto) 3.0 Urine RBC (Auto) 2.0 Hyaline Casts 1 Urine Mucus Few Blood Type Antibody Screen 12/27/17 12/27/17 13:51 15:10 WBC RBC Hgb Hct MCV MCH MCHC RDW Plt Count Add Manual Diff Total Counted Seg Neuts % (Manual) Band Neutrophils % Lymphocytes % (Manual) Reactive Lymphs % (Man) Monocytes % (Manual) Eosinophils % (Manual) Basophils % (Manual) Metamyelocytes % Myelocytes % Promyelocytes % Blast Cells % Nucleated RBC % Seg Neutrophils # Man Band Neutrophils # Lymphocytes # (Manual) Abs React Lymphs (Man) Monocytes # (Manual) Eosinophils # (Manual) Basophils # (Manual) Metamyelocytes # Myelocytes # Promyelocytes # Blast Cells # WBC Morphology Hypersegmented Neuts Hyposegmented Neuts Hypogranular Neuts Smudge Cells Toxic Granulation Toxic Vacuolation Dohle Bodies Pelger-Huet Anomaly Blair Rods Platelet Estimate Clumped Platelets Plt Clumps, EDTA Large Platelets Giant Platelets Platelet Satelliting Plt Morphology Comment RBC Morphology Dimorphic RBCs Polychromasia Hypochromasia Poikilocytosis Anisocytosis Microcytosis Macrocytosis Spherocytes Pappenheimer Bodies Sickle Cells Target Cells Tear Drop Cells Ovalocytes Helmet Cells [place] Bodies [place] Va Cells Bite Cells Crenated Cell Elliptocytes Acanthocytes (Spur) Rouleaux Hemoglobin C Crystals Schistocytes Malaria parasites Mario Bodies Hem Pathologist Commnt PT 19.2 H INR 1.52 H APTT 40.6 H Sodium Potassium Chloride Carbon Dioxide Anion Gap BUN Creatinine Estimated GFR BUN/Creatinine Ratio Glucose Calcium Total Bilirubin AST ALT Alkaline Phosphatase Total Protein Albumin Albumin/Globulin Ratio Lipase Urine Color Urine Turbidity Urine pH Ur Specific [place] Urine Protein Urine Glucose (UA) Urine Ketones Urine Blood Urine Nitrite Urine Bilirubin Urine Urobilinogen Ur Leukocyte Esterase Urine WBC (Auto) Urine RBC (Auto) Hyaline Casts Urine Mucus Blood Type O POSITIVE Antibody Screen Negative Assessment and Plan - Patient Problems (1) Atrial fibrillation Current Visit: Yes Status: Acute (2) CHF (congestive heart failure), NYHA class I Current Visit: Yes Status: Acute (3) Hyperlipemia Current Visit: Yes Status: Acute (4) Hypertension Current Visit: Yes Status: Acute (5) GI bleed Current Visit: Yes Status: Acute Plan to address problem: Subacute GI bleeding manifested by melena and severe anemia. The patient is on Xarelto and will need a complete luminal GI work up after further transfusion and 48 hours off Xarelto with EGD and colonoscopy. She will need outpatient pill camera study if these are normal. Clear liquid diet now and plan prep tomorrow for studies the day after. Thank you for asking me to see her in consultation.
[2017-12-27] MEDS ORDERED: NACL 0.9% 500 ML 500 ML IV NR (17:55)
[2017-12-27] MEDS: TYLENOL PO PRN (19:18)
[2017-12-27] MEDS ORDERED: LOPRESSOR PO SCH (22:00)
[2017-12-27] MEDS ORDERED: PROTONIX IV SCH (22:00)
[2017-12-27] MEDS ORDERED: NON-FORMULARY (Atorvastatin [Lipitor] 80 MG) PO SCH (22:00)
[2017-12-27] MEDS: SODIUM CHLORIDE FLUSH SYRINGE 10 ML IV SCH (22:38)
--- NOTE | 2017-12-28 08:20 | Gastroenterology Progress Note ---
Assessment and Plan - Patient Problems (1) Atrial fibrillation Current Visit: Yes Status: Acute Qualifiers: Atrial fibrillation type: persistent Qualified Code(s): I48.1 - Persistent atrial fibrillation (2) CHF (congestive heart failure), NYHA class I Current Visit: Yes Status: Acute (3) Hyperlipemia Current Visit: Yes Status: Acute Qualifiers: Hyperlipidemia type: mixed hyperlipidemia Qualified Code(s): E78.2 - Mixed hyperlipidemia (4) Hypertension Current Visit: Yes Status: Acute Qualifiers: Hypertension type: essential hypertension Qualified Code(s): I10 - Essential (primary) hypertension (5) GI bleed Current Visit: Yes Status: Acute Qualifiers: GI bleed type/associated pathology: unspecified gastrointestinal hemorrhage type Qualified Code(s): K92.2 - Gastrointestinal hemorrhage, unspecified Plan to address problem: No bleeding overnight. CBC pending after transfusion of 2 units PRBCs. Will plan for EGD and colonoscopy tomorrow. Prep today. Subjective Date of service: 12/28/17 Principal diagnosis: GI bleeding Interval history: Denies any bleeding overnight. Objective - Constitutional Vitals: Temp Pulse Resp BP Pulse Ox 98.1 F 71 18 138/61 99 12/28/17 04:04 12/28/17 04:04 12/28/17 04:04 12/28/17 04:04 12/28/17 04:04 General appearance: no acute distress - EENT ENT: hearing intact, clear oral mucosa, dentition normal - Respiratory Respiratory effort: normal Respiratory: bilateral: CTA - Cardiovascular Rhythm: regular - Gastrointestinal General gastrointestinal: Present: soft, non-tender, non-distended, normal bowel sounds - Neurologic Neurological: alert and oriented x3 - Labs CBC & Chem 7: 12/27/17 13:03 12/27/17 13:03 Labs: Laboratory Results - last 24 hr 12/27/17 12/27/17 12/27/17 13:03 13:03 13:24 WBC 5.6 RBC 2.29 L Hgb 6.5 L Hct 19.7 L* MCV 86 MCH 28 MCHC 33 RDW 28.5 H Plt Count 192 Add Manual Diff Complete Total Counted 100 Seg Neuts % (Manual) 81.0 H Band Neutrophils % 0 Lymphocytes % (Manual) 18.0 Reactive Lymphs % (Man) 0 Monocytes % (Manual) 1.0 Eosinophils % (Manual) 0 Basophils % (Manual) 0 Metamyelocytes % 0 Myelocytes % 0 Promyelocytes % 0 Blast Cells % 0 Nucleated RBC % Not Reportable Seg Neutrophils # Man 4.5 Band Neutrophils # 0.0 Lymphocytes # (Manual) 1.0 L Abs React Lymphs (Man) 0.0 Monocytes # (Manual) 0.1 Eosinophils # (Manual) 0.0 Basophils # (Manual) 0.0 Metamyelocytes # 0.0 Myelocytes # 0.0 Promyelocytes # 0.0 Blast Cells # 0.0 WBC Morphology Not Reportable Hypersegmented Neuts Not Reportable Hyposegmented Neuts Not Reportable Hypogranular Neuts Not Reportable Smudge Cells Not Reportable Toxic Granulation Not Reportable Toxic Vacuolation Not Reportable Dohle Bodies Not Reportable Pelger-Huet Anomaly Not Reportable Blair Rods Not Reportable Platelet Estimate Not Reportable Clumped Platelets Not Reportable Plt Clumps, EDTA Not Reportable Large Platelets Not Reportable Giant Platelets Not Reportable Platelet Satelliting Not Reportable Plt Morphology Comment Not Reportable RBC Morphology Not Reportable Dimorphic RBCs Not Reportable Polychromasia 1+ Hypochromasia 1+ Poikilocytosis Not Reportable Anisocytosis Not Reportable Microcytosis Not Reportable Macrocytosis Not Reportable Spherocytes Not Reportable Pappenheimer Bodies Not Reportable Sickle Cells Not Reportable Target Cells Few Tear Drop Cells Few Ovalocytes Not Reportable Helmet Cells Not Reportable Myles-[place] Bodies Not Reportable [place] Rings Not Reportable Va Cells Not Reportable Bite Cells Not Reportable Crenated Cell Not Reportable Elliptocytes Few Acanthocytes (Spur) Not Reportable Rouleaux Not Reportable Hemoglobin C Crystals Not Reportable Schistocytes Rare Malaria parasites Not Reportable Mario Bodies Not Reportable Hem Pathologist Commnt No PT INR APTT Sodium 141 Potassium 4.8 Chloride 107.2 H Carbon Dioxide 26 Anion Gap 13 BUN 19 H Creatinine 0.9 Estimated GFR > 60 BUN/Creatinine Ratio 21 Glucose 113 H Calcium 9.3 Total Bilirubin 0.20 AST 32 ALT 26 Alkaline Phosphatase 92 Total Protein 6.0 L Albumin 3.6 L Albumin/Globulin Ratio 1.5 Lipase 65 H Urine Color Yellow Urine Turbidity Clear Urine pH 5.0 Ur Specific [place] 1.017 Urine Protein <15 mg/dl Urine Glucose (UA) Neg Urine Ketones Neg Urine Blood Neg Urine Nitrite Neg Urine Bilirubin Neg Urine Urobilinogen < 2.0 Ur Leukocyte Esterase Neg Urine WBC (Auto) 3.0 Urine RBC (Auto) 2.0 Hyaline Casts 1 Urine Mucus Few Blood Type Antibody Screen Crossmatch 12/27/17 12/27/17 13:51 15:10 WBC RBC Hgb Hct MCV MCH MCHC RDW Plt Count Add Manual Diff Total Counted Seg Neuts % (Manual) Band Neutrophils % Lymphocytes % (Manual) Reactive Lymphs % (Man) Monocytes % (Manual) Eosinophils % (Manual) Basophils % (Manual) Metamyelocytes % Myelocytes % Promyelocytes % Blast Cells % Nucleated RBC % Seg Neutrophils # Man Band Neutrophils # Lymphocytes # (Manual) Abs React Lymphs (Man) Monocytes # (Manual) Eosinophils # (Manual) Basophils # (Manual) Metamyelocytes # Myelocytes # Promyelocytes # Blast Cells # WBC Morphology Hypersegmented Neuts Hyposegmented Neuts Hypogranular Neuts Smudge Cells Toxic Granulation Toxic Vacuolation Dohle Bodies Pelger-Huet Anomaly [place] Rods Platelet Estimate Clumped Platelets Plt Clumps, EDTA Large Platelets Giant Platelets Platelet Satelliting Plt Morphology Comment RBC Morphology Dimorphic RBCs Polychromasia Hypochromasia Poikilocytosis Anisocytosis Microcytosis Macrocytosis Spherocytes Pappenheimer Bodies Sickle Cells Target Cells Tear Drop Cells Ovalocytes Helmet Cells Myles[place] Bodies [place] Rings [place] Cells Bite Cells Crenated Cell Elliptocytes Acanthocytes (Spur) Rouleaux Hemoglobin C Crystals Schistocytes Malaria parasites Mario Bodies Hem Pathologist Commnt PT 19.2 H INR 1.52 H APTT 40.6 H Sodium Potassium Chloride Carbon Dioxide Anion Gap BUN Creatinine Estimated GFR BUN/Creatinine Ratio Glucose Calcium Total Bilirubin AST ALT Alkaline Phosphatase Total Protein Albumin Albumin/Globulin Ratio Lipase Urine Color Urine Turbidity Urine pH Ur Specific [place] Urine Protein Urine Glucose (UA) Urine Ketones Urine Blood Urine Nitrite Urine Bilirubin Urine Urobilinogen Ur Leukocyte Esterase Urine WBC (Auto) Urine RBC (Auto) Hyaline Casts Urine Mucus Blood Type O POSITIVE Antibody Screen Negative Crossmatch See Detail
[2017-12-28] MEDS ORDERED: NON-FORMULARY (Valsartan [Diovan] 320 MG) PO SCH (10:00)
[2017-12-28] MEDS ORDERED: NON-FORMULARY (Enalapril Maleate [Vasotec] 20 MG) PO SCH (10:00)
[2017-12-28] MEDS ORDERED: NON-FORMULARY (Potassium Chloride [Potassium Chloride] 10 MEQ) PO SCH (10:00)
[2017-12-28] MEDS ORDERED: XARELTO PO SCH (10:00)
[2017-12-28] MEDS: ZESTRIL PO SCH (11:02)
[2017-12-28] MEDS: COREG PO SCH (11:20)
[2017-12-28] MEDS: LASIX PO SCH (11:20)
[2017-12-28] MEDS: K-DUR PO SCH ×2 (11:20)
[2017-12-28] MEDS: DIOVAN PO SCH (11:20)
--- NOTE | 2017-12-28 11:39 | Progress Note ---
<RAMIROLORENALATHA Lopes - Last Filed: 12/28/17 11:39> Hospitalist Physical - Constitutional Vitals: Temp Pulse Resp BP Pulse Ox 98.1 F 71 18 138/61 99 12/28/17 04:04 12/28/17 04:04 12/28/17 04:04 12/28/17 04:04 12/28/17 04:04 General appearance: Present: mild distress Results - Labs CBC & Chem 7: 12/27/17 13:03 12/27/17 13:03 Labs: Laboratory Last Values WBC 5.6 K/mm3 (4.5-11.0) 12/27/17 13:03 RBC 2.29 M/mm3 (3.65-5.03) L 12/27/17 13:03 Hgb 6.5 gm/dl (10.1-14.3) L 12/27/17 13:03 Hct 19.7 % (30.3-42.9) L* 12/27/17 13:03 MCV 86 fl (79-97) 12/27/17 13:03 MCH 28 pg (28-32) 12/27/17 13:03 MCHC 33 % (30-34) 12/27/17 13:03 RDW 28.5 % (13.2-15.2) H 12/27/17 13:03 Plt Count 192 K/mm3 (140-440) 12/27/17 13:03 Add Manual Diff Complete 12/27/17 13:03 Total Counted 100 12/27/17 13:03 Seg Neuts % (Manual) 81.0 % (40.0-70.0) H 12/27/17 13:03 Band Neutrophils % 0 % 12/27/17 13:03 Lymphocytes % (Manual) 18.0 % (13.4-35.0) 12/27/17 13:03 Reactive Lymphs % (Man) 0 % 12/27/17 13:03 Monocytes % (Manual) 1.0 % (0.0-7.3) 12/27/17 13:03 Eosinophils % (Manual) 0 % (0.0-4.3) 12/27/17 13:03 Basophils % (Manual) 0 % (0.0-1.8) 12/27/17 13:03 Metamyelocytes % 0 % 12/27/17 13:03 Myelocytes % 0 % 12/27/17 13:03 Promyelocytes % 0 % 12/27/17 13:03 Blast Cells % 0 % 12/27/17 13:03 Nucleated RBC % Not Reportable 12/27/17 13:03 Seg Neutrophils # Man 4.5 K/mm3 (1.8-7.7) 12/27/17 13:03 Band Neutrophils # 0.0 K/mm3 12/27/17 13:03 Lymphocytes # (Manual) 1.0 K/mm3 (1.2-5.4) L 12/27/17 13:03 Abs React Lymphs (Man) 0.0 K/mm3 12/27/17 13:03 Monocytes # (Manual) 0.1 K/mm3 (0.0-0.8) 12/27/17 13:03 Eosinophils # (Manual) 0.0 K/mm3 (0.0-0.4) 12/27/17 13:03 Basophils # (Manual) 0.0 K/mm3 (0.0-0.1) 12/27/17 13:03 Metamyelocytes # 0.0 K/mm3 12/27/17 13:03 Myelocytes # 0.0 K/mm3 12/27/17 13:03 Promyelocytes # 0.0 K/mm3 12/27/17 13:03 Blast Cells # 0.0 K/mm3 12/27/17 13:03 WBC Morphology Not Reportable 12/27/17 13:03 Hypersegmented Neuts Not Reportable 12/27/17 13:03 Hyposegmented Neuts Not Reportable 12/27/17 13:03 Hypogranular Neuts Not Reportable 12/27/17 13:03 Smudge Cells Not Reportable 12/27/17 13:03 Toxic Granulation Not Reportable 12/27/17 13:03 Toxic Vacuolation Not Reportable 12/27/17 13:03 Dohle Bodies Not Reportable 12/27/17 13:03 Pelger-Huet Anomaly Not Reportable 12/27/17 13:03 Blair Rods Not Reportable 12/27/17 13:03 Platelet Estimate Not Reportable 12/27/17 13:03 Clumped Platelets Not Reportable 12/27/17 13:03 Plt Clumps, EDTA Not Reportable 12/27/17 13:03 Large Platelets Not Reportable 12/27/17 13:03 Giant Platelets Not Reportable 12/27/17 13:03 Platelet Satelliting Not Reportable 12/27/17 13:03 Plt Morphology Comment Not Reportable 12/27/17 13:03 RBC Morphology Not Reportable 12/27/17 13:03 Dimorphic RBCs Not Reportable 12/27/17 13:03 Polychromasia 1+ 12/27/17 13:03 Hypochromasia 1+ 12/27/17 13:03 Poikilocytosis Not Reportable 12/27/17 13:03 Anisocytosis Not Reportable 12/27/17 13:03 Microcytosis Not Reportable 12/27/17 13:03 Macrocytosis Not Reportable 12/27/17 13:03 Spherocytes Not Reportable 12/27/17 13:03 Pappenheimer Bodies Not Reportable 12/27/17 13:03 Sickle Cells Not Reportable 12/27/17 13:03 Target Cells Few 12/27/17 13:03 Tear Drop Cells Few 12/27/17 13:03 Ovalocytes Not Reportable 12/27/17 13:03 Helmet Cells Not Reportable 12/27/17 13:03 Myles-Weed Bodies Not Reportable 12/27/17 13:03 T[place]umseh Rings Not Reportable 12/27/17 13:03 Homer Cells Not Reportable 12/27/17 13:03 Bite Cells Not Reportable 12/27/17 13:03 Crenated Cell Not Reportable 12/27/17 13:03 Elliptocytes Few 12/27/17 13:03 Acanthocytes (Spur) Not Reportable 12/27/17 13:03 Rouleaux Not Reportable 12/27/17 13:03 Hemoglobin C Crystals Not Reportable 12/27/17 13:03 Schistocytes Rare 12/27/17 13:03 Malaria parasites Not Reportable 12/27/17 13:03 Mario Bodies Not Reportable 12/27/17 13:03 Hem Pathologist Commnt No 12/27/17 13:03 PT 19.2 Sec. (12.2-14.9) H 12/27/17 15:10 INR 1.52 (0.87-1.13) H 12/27/17 15:10 APTT 40.6 Sec. (24.2-36.6) H 12/27/17 15:10 Sodium 141 mmol/L (137-145) 12/27/17 13:03 Potassium 4.8 mmol/L (3.6-5.0) 12/27/17 13:03 Chloride 107.2 mmol/L (98-107) H 12/27/17 13:03 Carbon Dioxide 26 mmol/L (22-30) 12/27/17 13:03 Anion Gap 13 mmol/L 12/27/17 13:03 BUN 19 mg/dL (7-17) H 12/27/17 13:03 Creatinine 0.9 mg/dL (0.7-1.2) 12/27/17 13:03 Estimated GFR > 60 ml/min 12/27/17 13:03 BUN/Creatinine Ratio 21 % 12/27/17 13:03 Glucose 113 mg/dL (65-100) H 12/27/17 13:03 Calcium 9.3 mg/dL (8.4-10.2) 12/27/17 13:03 Total Bilirubin 0.20 mg/dL (0.1-1.2) 12/27/17 13:03 AST 32 units/L (5-40) 12/27/17 13:03 ALT 26 units/L (7-56) 12/27/17 13:03 Alkaline Phosphatase 92 units/L (35-129) 12/27/17 13:03 Total Protein 6.0 g/dL (6.3-8.2) L 12/27/17 13:03 Albumin 3.6 g/dL (3.9-5) L 12/27/17 13:03 Albumin/Globulin Ratio 1.5 % 12/27/17 13:03 Lipase 65 units/L (13-60) H 12/27/17 13:03 Urine Color Yellow (Yellow) 12/27/17 13:24 Urine Turbidity Clear (Clear) 12/27/17 13:24 Urine pH 5.0 (5.0-7.0) 12/27/17 13:24 Ur Specific Haynes 1.017 (1.003-1.030) 12/27/17 13:24 Urine Protein <15 mg/dl mg/dL (Negative) 12/27/17 13:24 Urine Glucose (UA) Neg mg/dL (Negative) 12/27/17 13:24 Urine Ketones Neg mg/dL (Negative) 12/27/17 13:24 Urine Blood Neg (Negative) 12/27/17 13:24 Urine Nitrite Neg (Negative) 12/27/17 13:24 Urine Bilirubin Neg (Negative) 12/27/17 13:24 Urine Urobilinogen < 2.0 mg/dL (<2.0) 12/27/17 13:24 Ur Leukocyte Esterase Neg (Negative) 12/27/17 13:24 Urine WBC (Auto) 3.0 /HPF (0.0-6.0) 12/27/17 13:24 Urine RBC (Auto) 2.0 /HPF (0.0-6.0) 12/27/17 13:24 Hyaline Casts 1 /LPF 12/27/17 13:24 Urine Mucus Few /HPF 12/27/17 13:24 Blood Type O POSITIVE 12/27/17 13:51 Antibody Screen Negative 12/27/17 13:51 Crossmatch See Detail 12/27/17 13:51 <HERO LAROSE - Last Filed: 12/28/17 12:41> History Interval history: Patient is a 77 year old woman who presented to ED with complaints of nausea and loose black tarry stools. CHF (congestive heart failure) Stable, Continue Diuresis, strict I/O, monitor uop q shift, daily weight, Chest x ray cardiology consulted. Anemia S/P 2 units PRBC transfusion, repeat CBC today Atrial fibrillation Continue rate control, Hold anticoagulation GI bleed Continue IV ppi therapy, serial cbc GI following, Endoscopy and colonoscopy in am Hyperlipemia Continue statin therapy, low cholesterol diet Hypertension Continue at home antihypertensives, IV hydralazine PRN DVT prophylaxis SCD to BLE while in bed Hospitalist Physical - Constitutional Vitals: Temp Pulse Resp BP Pulse Ox 98.1 F 71 18 138/61 99 12/28/17 04:04 12/28/17 04:04 12/28/17 04:04 12/28/17 04:04 12/28/17 04:04 Results - Labs CBC & Chem 7: 12/27/17 13:03 12/27/17 13:03 Labs: Laboratory Last Values WBC 5.6 K/mm3 (4.5-11.0) 12/27/17 13:03 RBC 2.29 M/mm3 (3.65-5.03) L 12/27/17 13:03 Hgb 6.5 gm/dl (10.1-14.3) L 12/27/17 13:03 Hct 19.7 % (30.3-42.9) L* 12/27/17 13:03 MCV 86 fl (79-97) 12/27/17 13:03 MCH 28 pg (28-32) 12/27/17 13:03 MCHC 33 % (30-34) 12/27/17 13:03 RDW 28.5 % (13.2-15.2) H 12/27/17 13:03 Plt Count 192 K/mm3 (140-440) 12/27/17 13:03 Add Manual Diff Complete 12/27/17 13:03 Total Counted 100 12/27/17 13:03 Seg Neuts % (Manual) 81.0 % (40.0-70.0) H 12/27/17 13:03 Band Neutrophils % 0 % 12/27/17 13:03 Lymphocytes % (Manual) 18.0 % (13.4-35.0) 12/27/17 13:03 Reactive Lymphs % (Man) 0 % 12/27/17 13:03 Monocytes % (Manual) 1.0 % (0.0-7.3) 12/27/17 13:03 Eosinophils % (Manual) 0 % (0.0-4.3) 12/27/17 13:03 Basophils % (Manual) 0 % (0.0-1.8) 12/27/17 13:03 Metamyelocytes % 0 % 12/27/17 13:03 Myelocytes % 0 % 12/27/17 13:03 Promyelocytes % 0 % 12/27/17 13:03 Blast Cells % 0 % 12/27/17 13:03 Nucleated RBC % Not Reportable 12/27/17 13:03 Seg Neutrophils # Man 4.5 K/mm3 (1.8-7.7) 12/27/17 13:03 Band Neutrophils # 0.0 K/mm3 12/27/17 13:03 Lymphocytes # (Manual) 1.0 K/mm3 (1.2-5.4) L 12/27/17 13:03 Abs React Lymphs (Man) 0.0 K/mm3 12/27/17 13:03 Monocytes # (Manual) 0.1 K/mm3 (0.0-0.8) 12/27/17 13:03 Eosinophils # (Manual) 0.0 K/mm3 (0.0-0.4) 12/27/17 13:03 Basophils # (Manual) 0.0 K/mm3 (0.0-0.1) 12/27/17 13:03 Metamyelocytes # 0.0 K/mm3 12/27/17 13:03 Myelocytes # 0.0 K/mm3 12/27/17 13:03 Promyelocytes # 0.0 K/mm3 12/27/17 13:03 Blast Cells # 0.0 K/mm3 12/27/17 13:03 WBC Morphology Not Reportable 12/27/17 13:03 Hypersegmented Neuts Not Reportable 12/27/17 13:03 Hyposegmented Neuts Not Reportable 12/27/17 13:03 Hypogranular Neuts Not Reportable 12/27/17 13:03 Smudge Cells Not Reportable 12/27/17 13:03 Toxic Granulation Not Reportable 12/27/17 13:03 Toxic Vacuolation Not Reportable 12/27/17 13:03 Dohle Bodies Not Reportable 12/27/17 13:03 Pelger-Huet Anomaly Not Reportable 12/27/17 13:03 Blair Rods Not Reportable 12/27/17 13:03 Platelet Estimate Not Reportable 12/27/17 13:03 Clumped Platelets Not Reportable 12/27/17 13:03 Plt Clumps, EDTA Not Reportable 12/27/17 13:03 Large Platelets Not Reportable 12/27/17 13:03 Giant Platelets Not Reportable 12/27/17 13:03 Platelet Satelliting Not Reportable 12/27/17 13:03 Plt Morphology Comment Not Reportable 12/27/17 13:03 RBC Morphology Not Reportable 12/27/17 13:03 Dimorphic RBCs Not Reportable 12/27/17 13:03 Polychromasia 1+ 12/27/17 13:03 Hypochromasia 1+ 12/27/17 13:03 Poikilocytosis Not Reportable 12/27/17 13:03 Anisocytosis Not Reportable 12/27/17 13:03 Microcytosis Not Reportable 12/27/17 13:03 Macrocytosis Not Reportable 12/27/17 13:03 Spherocytes Not Reportable 12/27/17 13:03 Pappenheimer Bodies Not Reportable 12/27/17 13:03 Sickle Cells Not Reportable 12/27/17 13:03 Target Cells Few 12/27/17 13:03 Tear Drop Cells Few 12/27/17 13:03 Ovalocytes Not Reportable 12/27/17 13:03 Helmet Cells Not Reportable 12/27/17 13:03 Myles-Weed Bodies Not Reportable 12/27/17 13:03 Tecumseh Rings Not Reportable 12/27/17 13:03 Va Cells Not Reportable 12/27/17 13:03 Bite Cells Not Reportable 12/27/17 13:03 Crenated Cell Not Reportable 12/27/17 13:03 Elliptocytes Few 12/27/17 13:03 Acanthocytes (Spur) Not Reportable 12/27/17 13:03 Rouleaux Not Reportable 12/27/17 13:03 Hemoglobin C Crystals Not Reportable 12/27/17 13:03 Schistocytes Rare 12/27/17 13:03 Malaria parasites Not Reportable 12/27/17 13:03 Mario Bodies Not Reportable 12/27/17 13:03 Hem Pathologist Commnt No 12/27/17 13:03 PT 19.2 Sec. (12.2-14.9) H 12/27/17 15:10 INR 1.52 (0.87-1.13) H 12/27/17 15:10 APTT 40.6 Sec. (24.2-36.6) H 12/27/17 15:10 Sodium 141 mmol/L (137-145) 12/27/17 13:03 Potassium 4.8 mmol/L (3.6-5.0) 12/27/17 13:03 Chloride 107.2 mmol/L (98-107) H 12/27/17 13:03 Carbon Dioxide 26 mmol/L (22-30) 12/27/17 13:03 Anion Gap 13 mmol/L 12/27/17 13:03 BUN 19 mg/dL (7-17) H 12/27/17 13:03 Creatinine 0.9 mg/dL (0.7-1.2) 12/27/17 13:03 Estimated GFR > 60 ml/min 12/27/17 13:03 BUN/Creatinine Ratio 21 % 12/27/17 13:03 Glucose 113 mg/dL (65-100) H 12/27/17 13:03 Calcium 9.3 mg/dL (8.4-10.2) 12/27/17 13:03 Total Bilirubin 0.20 mg/dL (0.1-1.2) 12/27/17 13:03 AST 32 units/L (5-40) 12/27/17 13:03 ALT 26 units/L (7-56) 12/27/17 13:03 Alkaline Phosphatase 92 units/L (35-129) 12/27/17 13:03 Total Protein 6.0 g/dL (6.3-8.2) L 12/27/17 13:03 Albumin 3.6 g/dL (3.9-5) L 12/27/17 13:03 Albumin/Globulin Ratio 1.5 % 12/27/17 13:03 Lipase 65 units/L (13-60) H 12/27/17 13:03 Urine Color Yellow (Yellow) 12/27/17 13:24 Urine Turbidity Clear (Clear) 12/27/17 13:24 Urine pH 5.0 (5.0-7.0) 12/27/17 13:24 Ur Specific Haynes 1.017 (1.003-1.030) 12/27/17 13:24 Urine Protein <15 mg/dl mg/dL (Negative) 12/27/17 13:24 Urine Glucose (UA) Neg mg/dL (Negative) 12/27/17 13:24 Urine Ketones Neg mg/dL (Negative) 12/27/17 13:24 Urine Blood Neg (Negative) 12/27/17 13:24 Urine Nitrite Neg (Negative) 12/27/17 13:24 Urine Bilirubin Neg (Negative) 12/27/17 13:24 Urine Urobilinogen < 2.0 mg/dL (<2.0) 12/27/17 13:24 Ur Leukocyte Esterase Neg (Negative) 12/27/17 13:24 Urine WBC (Auto) 3.0 /HPF (0.0-6.0) 12/27/17 13:24 Urine RBC (Auto) 2.0 /HPF (0.0-6.0) 12/27/17 13:24 Hyaline Casts 1 /LPF 12/27/17 13:24 Urine Mucus Few /HPF 12/27/17 13:24 Blood Type O POSITIVE 12/27/17 13:51 Antibody Screen Negative 12/27/17 13:51 Crossmatch See Detail 12/27/17 13:51
[2017-12-28 12:39] LABS: Hematocrit 23.5 % (30.3-42.9); Hemoglobin 7.9 gm/dl (10.1-14.3); Mean Corpuscular HGB Conc 34 % (30-34); Mean Corpuscular Hemoglobin 28 pg (28-32); Mean Corpuscular Volume 84 fl (79-97); Platelet Count 165 K/mm3 (140-440); Red Blood Count 2.81 M/mm3 (3.65-5.03)
--- NOTE | 2017-12-28 12:50 | Progress Note ---
<HERO LAROSE - Last Filed: 12/28/17 14:41> Assessment and Plan Assessment and plan: Patient is a 77 year old woman who presented to ED with complaints of nausea and loose black tarry stools. CHF (congestive heart failure) Stable, Continue Diuresis, strict I/O, monitor uop q shift, daily weight, Chest x ray cardiology consulted. Anemia S/P 2 units PRBC transfusion, repeat CBC today Atrial fibrillation Continue rate control, Hold anticoagulation GI bleed Continue IV ppi therapy, serial cbc GI following, Endoscopy and colonoscopy in am Hyperlipemia Continue statin therapy, low cholesterol diet Hypertension Continue at home antihypertensives, IV hydralazine PRN DVT prophylaxis SCD to BLE while in bed History Interval history: Patient seen and examined. She has no new complaints at this time. Labs, chart notes, nursing notes reviewed. Hospitalist Physical - Constitutional Vitals: Temp Pulse Resp BP Pulse Ox 98.1 F 71 18 138/61 99 12/28/17 04:04 12/28/17 04:04 12/28/17 04:04 12/28/17 04:04 12/28/17 04:04 General appearance: Present: no acute distress, cachectic - EENT Eyes: Present: PERRL, EOM intact ENT: hearing intact, clear oral mucosa - Neck Neck: Present: supple, normal ROM - Respiratory Respiratory effort: normal Respiratory: bilateral: CTA - Cardiovascular Rhythm: regular Heart Sounds: Present: S1 & S2 - Extremities Extremities: no ischemia, No edema - Abdominal General gastrointestinal: soft, non-tender, non-distended - Integumentary Integumentary: Present: clear, warm, dry - Psychiatric Psychiatric: appropriate mood/affect, cooperative Results - Labs CBC & Chem 7: 12/28/17 11:38 12/27/17 13:03 Labs: Laboratory Last Values WBC 5.6 K/mm3 (4.5-11.0) 12/27/17 13:03 RBC 2.29 M/mm3 (3.65-5.03) L 12/27/17 13:03 Hgb 6.5 gm/dl (10.1-14.3) L 12/27/17 13:03 Hct 19.7 % (30.3-42.9) L* 12/27/17 13:03 MCV 86 fl (79-97) 12/27/17 13:03 MCH 28 pg (28-32) 12/27/17 13:03 MCHC 33 % (30-34) 12/27/17 13:03 RDW 28.5 % (13.2-15.2) H 12/27/17 13:03 Plt Count 192 K/mm3 (140-440) 12/27/17 13:03 Add Manual Diff Complete 12/27/17 13:03 Total Counted 100 12/27/17 13:03 Seg Neuts % (Manual) 81.0 % (40.0-70.0) H 12/27/17 13:03 Band Neutrophils % 0 % 12/27/17 13:03 Lymphocytes % (Manual) 18.0 % (13.4-35.0) 12/27/17 13:03 Reactive Lymphs % (Man) 0 % 12/27/17 13:03 Monocytes % (Manual) 1.0 % (0.0-7.3) 12/27/17 13:03 Eosinophils % (Manual) 0 % (0.0-4.3) 12/27/17 13:03 Basophils % (Manual) 0 % (0.0-1.8) 12/27/17 13:03 Metamyelocytes % 0 % 12/27/17 13:03 Myelocytes % 0 % 12/27/17 13:03 Promyelocytes % 0 % 12/27/17 13:03 Blast Cells % 0 % 12/27/17 13:03 Nucleated RBC % Not Reportable 12/27/17 13:03 Seg Neutrophils # Man 4.5 K/mm3 (1.8-7.7) 12/27/17 13:03 Band Neutrophils # 0.0 K/mm3 12/27/17 13:03 Lymphocytes # (Manual) 1.0 K/mm3 (1.2-5.4) L 12/27/17 13:03 Abs React Lymphs (Man) 0.0 K/mm3 12/27/17 13:03 Monocytes # (Manual) 0.1 K/mm3 (0.0-0.8) 12/27/17 13:03 Eosinophils # (Manual) 0.0 K/mm3 (0.0-0.4) 12/27/17 13:03 Basophils # (Manual) 0.0 K/mm3 (0.0-0.1) 12/27/17 13:03 Metamyelocytes # 0.0 K/mm3 12/27/17 13:03 Myelocytes # 0.0 K/mm3 12/27/17 13:03 Promyelocytes # 0.0 K/mm3 12/27/17 13:03 Blast Cells # 0.0 K/mm3 12/27/17 13:03 WBC Morphology Not Reportable 12/27/17 13:03 Hypersegmented Neuts Not Reportable 12/27/17 13:03 Hyposegmented Neuts Not Reportable 12/27/17 13:03 Hypogranular Neuts Not Reportable 12/27/17 13:03 Smudge Cells Not Reportable 12/27/17 13:03 Toxic Granulation Not Reportable 12/27/17 13:03 Toxic Vacuolation Not Reportable 12/27/17 13:03 Dohle Bodies Not Reportable 12/27/17 13:03 Pelger-Huet Anomaly Not Reportable 12/27/17 13:03 Blair Rods Not Reportable 12/27/17 13:03 Platelet Estimate Not Reportable 12/27/17 13:03 Clumped Platelets Not Reportable 12/27/17 13:03 Plt Clumps, EDTA Not Reportable 12/27/17 13:03 Large Platelets Not Reportable 12/27/17 13:03 Giant Platelets Not Reportable 12/27/17 13:03 Platelet Satelliting Not Reportable 12/27/17 13:03 Plt Morphology Comment Not Reportable 12/27/17 13:03 RBC Morphology Not Reportable 12/27/17 13:03 Dimorphic RBCs Not Reportable 12/27/17 13:03 Polychromasia 1+ 12/27/17 13:03 Hypochromasia 1+ 12/27/17 13:03 Poikilocytosis Not Reportable 12/27/17 13:03 Anisocytosis Not Reportable 12/27/17 13:03 Microcytosis Not Reportable 12/27/17 13:03 Macrocytosis Not Reportable 12/27/17 13:03 Spherocytes Not Reportable 12/27/17 13:03 Pappenheimer Bodies Not Reportable 12/27/17 13:03 Sickle Cells Not Reportable 12/27/17 13:03 Target Cells Few 12/27/17 13:03 Tear Drop Cells Few 12/27/17 13:03 Ovalocytes Not Reportable 12/27/17 13:03 Helmet Cells Not Reportable 12/27/17 13:03 [place] Bodies Not Reportable 12/27/17 13:03 [place] Rings Not Reportable 12/27/17 13:03 Tucker Cells Not Reportable 12/27/17 13:03 Bite Cells Not Reportable 12/27/17 13:03 Crenated Cell Not Reportable 12/27/17 13:03 Elliptocytes Few 12/27/17 13:03 Acanthocytes (Spur) Not Reportable 12/27/17 13:03 Rouleaux Not Reportable 12/27/17 13:03 Hemoglobin C Crystals Not Reportable 12/27/17 13:03 Schistocytes Rare 12/27/17 13:03 Malaria parasites Not Reportable 12/27/17 13:03 Mario Bodies Not Reportable 12/27/17 13:03 Hem Pathologist Commnt No 12/27/17 13:03 PT 19.2 Sec. (12.2-14.9) H 12/27/17 15:10 INR 1.52 (0.87-1.13) H 12/27/17 15:10 APTT 40.6 Sec. (24.2-36.6) H 12/27/17 15:10 Sodium 141 mmol/L (137-145) 12/27/17 13:03 Potassium 4.8 mmol/L (3.6-5.0) 12/27/17 13:03 Chloride 107.2 mmol/L (98-107) H 12/27/17 13:03 Carbon Dioxide 26 mmol/L (22-30) 12/27/17 13:03 Anion Gap 13 mmol/L 12/27/17 13:03 BUN 19 mg/dL (7-17) H 12/27/17 13:03 Creatinine 0.9 mg/dL (0.7-1.2) 12/27/17 13:03 Estimated GFR > 60 ml/min 12/27/17 13:03 BUN/Creatinine Ratio 21 % 12/27/17 13:03 Glucose 113 mg/dL (65-100) H 12/27/17 13:03 Calcium 9.3 mg/dL (8.4-10.2) 12/27/17 13:03 Total Bilirubin 0.20 mg/dL (0.1-1.2) 12/27/17 13:03 AST 32 units/L (5-40) 12/27/17 13:03 ALT 26 units/L (7-56) 12/27/17 13:03 Alkaline Phosphatase 92 units/L (35-129) 12/27/17 13:03 Total Protein 6.0 g/dL (6.3-8.2) L 12/27/17 13:03 Albumin 3.6 g/dL (3.9-5) L 12/27/17 13:03 Albumin/Globulin Ratio 1.5 % 12/27/17 13:03 Lipase 65 units/L (13-60) H 12/27/17 13:03 Urine Color Yellow (Yellow) 12/27/17 13:24 Urine Turbidity Clear (Clear) 12/27/17 13:24 Urine pH 5.0 (5.0-7.0) 12/27/17 13:24 Ur Specific [place] 1.017 (1.003-1.030) 12/27/17 13:24 Urine Protein <15 mg/dl mg/dL (Negative) 12/27/17 13:24 Urine Glucose (UA) Neg mg/dL (Negative) 12/27/17 13:24 Urine Ketones Neg mg/dL (Negative) 12/27/17 13:24 Urine Blood Neg (Negative) 12/27/17 13:24 Urine Nitrite Neg (Negative) 12/27/17 13:24 Urine Bilirubin Neg (Negative) 12/27/17 13:24 Urine Urobilinogen < 2.0 mg/dL (<2.0) 12/27/17 13:24 Ur Leukocyte Esterase Neg (Negative) 12/27/17 13:24 Urine WBC (Auto) 3.0 /HPF (0.0-6.0) 12/27/17 13:24 Urine RBC (Auto) 2.0 /HPF (0.0-6.0) 12/27/17 13:24 Hyaline Casts 1 /LPF 12/27/17 13:24 Urine Mucus Few /HPF 12/27/17 13:24 Blood Type O POSITIVE 12/27/17 13:51 Antibody Screen Negative 12/27/17 13:51 Crossmatch See Detail 12/27/17 13:51 <LATHA MASON E - Last Filed: 12/28/17 17:11> Assessment and Plan Assessment and plan: I saw and evaluated the patient. I agree with the findings and the plan of care as documented in the FINANCIAL OPERATIONS CONSULTANT's~note, with the following corrections and additions. Hospitalist Physical - Constitutional Vitals: Temp Pulse Resp BP Pulse Ox 98.6 F 80 18 151/74 100 12/28/17 12:22 12/28/17 12:22 12/28/17 12:22 12/28/17 12:22 12/28/17 12:22 Results - Labs CBC & Chem 7: 12/28/17 11:38 12/27/17 13:03 Labs: Laboratory Last Values WBC 4.8 K/mm3 (4.5-11.0) 12/28/17 11:38 RBC 2.81 M/mm3 (3.65-5.03) L 12/28/17 11:38 Hgb 7.9 gm/dl (10.1-14.3) L 12/28/17 11:38 Hct 23.5 % (30.3-42.9) L 12/28/17 11:38 MCV 84 fl (79-97) 12/28/17 11:38 MCH 28 pg (28-32) 12/28/17 11:38 MCHC 34 % (30-34) 12/28/17 11:38 RDW 24.1 % (13.2-15.2) H 12/28/17 11:38 Plt Count 165 K/mm3 (140-440) 12/28/17 11:38 Add Manual Diff Complete 12/28/17 11:38 Total Counted 100 12/28/17 11:38 Seg Neuts % (Manual) 70.0 % (40.0-70.0) 12/28/17 11:38 Band Neutrophils % 0 % 12/28/17 11:38 Lymphocytes % (Manual) 23.0 % (13.4-35.0) 12/28/17 11:38 Reactive Lymphs % (Man) 0 % 12/28/17 11:38 Monocytes % (Manual) 6.0 % (0.0-7.3) 12/28/17 11:38 Eosinophils % (Manual) 1.0 % (0.0-4.3) 12/28/17 11:38 Basophils % (Manual) 0 % (0.0-1.8) 12/28/17 11:38 Metamyelocytes % 0 % 12/28/17 11:38 Myelocytes % 0 % 12/28/17 11:38 Promyelocytes % 0 % 12/28/17 11:38 Blast Cells % 0 % 12/28/17 11:38 Nucleated RBC % Not Reportable 12/28/17 11:38 Seg Neutrophils # Man 3.4 K/mm3 (1.8-7.7) 12/28/17 11:38 Band Neutrophils # 0.0 K/mm3 12/28/17 11:38 Lymphocytes # (Manual) 1.1 K/mm3 (1.2-5.4) L 12/28/17 11:38 Abs React Lymphs (Man) 0.0 K/mm3 12/28/17 11:38 Monocytes # (Manual) 0.3 K/mm3 (0.0-0.8) 12/28/17 11:38 Eosinophils # (Manual) 0.0 K/mm3 (0.0-0.4) 12/28/17 11:38 Basophils # (Manual) 0.0 K/mm3 (0.0-0.1) 12/28/17 11:38 Metamyelocytes # 0.0 K/mm3 12/28/17 11:38 Myelocytes # 0.0 K/mm3 12/28/17 11:38 Promyelocytes # 0.0 K/mm3 12/28/17 11:38 Blast Cells # 0.0 K/mm3 12/28/17 11:38 WBC Morphology Not Reportable 12/28/17 11:38 Hypersegmented Neuts Not Reportable 12/28/17 11:38 Hyposegmented Neuts Not Reportable 12/28/17 11:38 Hypogranular Neuts Not Reportable 12/28/17 11:38 Smudge Cells Not Reportable 12/28/17 11:38 Toxic Granulation Not Reportable 12/28/17 11:38 Toxic Vacuolation Not Reportable 12/28/17 11:38 Dohle Bodies Not Reportable 12/28/17 11:38 Pelger-Huet Anomaly Not Reportable 12/28/17 11:38 Blair Rods Not Reportable 12/28/17 11:38 Platelet Estimate Consistent w auto 12/28/17 11:38 Clumped Platelets Not Reportable 12/28/17 11:38 Plt Clumps, EDTA Not Reportable 12/28/17 11:38 Large Platelets Not Reportable 12/28/17 11:38 Giant Platelets Not Reportable 12/28/17 11:38 Platelet Satelliting Not Reportable 12/28/17 11:38 Plt Morphology Comment Not Reportable 12/28/17 11:38 RBC Morphology Not Reportable 12/28/17 11:38 Dimorphic RBCs Not Reportable 12/28/17 11:38 Polychromasia Not Reportable 12/28/17 11:38 Hypochromasia 2+ 12/28/17 11:38 Poikilocytosis 1+ 12/28/17 11:38 Anisocytosis 2+ 12/28/17 11:38 Microcytosis 1+ 12/28/17 11:38 Macrocytosis Not Reportable 12/28/17 11:38 Spherocytes Not Reportable 12/28/17 11:38 Pappenheimer Bodies Not Reportable 12/28/17 11:38 Sickle Cells Not Reportable 12/28/17 11:38 Target Cells Not Reportable 12/28/17 11:38 Tear Drop Cells Not Reportable 12/28/17 11:38 Ovalocytes Not Reportable 12/28/17 11:38 Helmet Cells Not Reportable 12/28/17 11:38 [place] Bodies Not Reportable 12/28/17 11:38 [place] Rings Not Reportable 12/28/17 11:38 Va Cells Not Reportable 12/28/17 11:38 Bite Cells Not Reportable 12/28/17 11:38 Crenated Cell Not Reportable 12/28/17 11:38 Elliptocytes Not Reportable 12/28/17 11:38 Acanthocytes (Spur) Not Reportable 12/28/17 11:38 Rouleaux Not Reportable 12/28/17 11:38 Hemoglobin C Crystals Not Reportable 12/28/17 11:38 Schistocytes Not Reportable 12/28/17 11:38 Malaria parasites Not Reportable 12/28/17 11:38 Mario Bodies Not Reportable 12/28/17 11:38 Hem Pathologist Commnt No 12/28/17 11:38 PT 19.2 Sec. (12.2-14.9) H 12/27/17 15:10 INR 1.52 (0.87-1.13) H 12/27/17 15:10 APTT 40.6 Sec. (24.2-36.6) H 12/27/17 15:10 Sodium 141 mmol/L (137-145) 12/27/17 13:03 Potassium 4.8 mmol/L (3.6-5.0) 12/27/17 13:03 Chloride 107.2 mmol/L (98-107) H 12/27/17 13:03 Carbon Dioxide 26 mmol/L (22-30) 12/27/17 13:03 Anion Gap 13 mmol/L 12/27/17 13:03 BUN 19 mg/dL (7-17) H 12/27/17 13:03 Creatinine 0.9 mg/dL (0.7-1.2) 12/27/17 13:03 Estimated GFR > 60 ml/min 12/27/17 13:03 BUN/Creatinine Ratio 21 % 12/27/17 13:03 Glucose 113 mg/dL (65-100) H 12/27/17 13:03 Calcium 9.3 mg/dL (8.4-10.2) 12/27/17 13:03 Total Bilirubin 0.20 mg/dL (0.1-1.2) 12/27/17 13:03 AST 32 units/L (5-40) 12/27/17 13:03 ALT 26 units/L (7-56) 12/27/17 13:03 Alkaline Phosphatase 92 units/L (35-129) 12/27/17 13:03 Total Protein 6.0 g/dL (6.3-8.2) L 12/27/17 13:03 Albumin 3.6 g/dL (3.9-5) L 12/27/17 13:03 Albumin/Globulin Ratio 1.5 % 12/27/17 13:03 Lipase 65 units/L (13-60) H 12/27/17 13:03 Urine Color Yellow (Yellow) 12/27/17 13:24 Urine Turbidity Clear (Clear) 12/27/17 13:24 Urine pH 5.0 (5.0-7.0) 12/27/17 13:24 Ur Specific [place] 1.017 (1.003-1.030) 12/27/17 13:24 Urine Protein <15 mg/dl mg/dL (Negative) 12/27/17 13:24 Urine Glucose (UA) Neg mg/dL (Negative) 12/27/17 13:24 Urine Ketones Neg mg/dL (Negative) 12/27/17 13:24 Urine Blood Neg (Negative) 12/27/17 13:24 Urine Nitrite Neg (Negative) 12/27/17 13:24 Urine Bilirubin Neg (Negative) 12/27/17 13:24 Urine Urobilinogen < 2.0 mg/dL (<2.0) 12/27/17 13:24 Ur Leukocyte Esterase Neg (Negative) 12/27/17 13:24 Urine WBC (Auto) 3.0 /HPF (0.0-6.0) 12/27/17 13:24 Urine RBC (Auto) 2.0 /HPF (0.0-6.0) 12/27/17 13:24 Hyaline Casts 1 /LPF 12/27/17 13:24 Urine Mucus Few /HPF 12/27/17 13:24 Blood Type O POSITIVE 12/27/17 13:51 Antibody Screen Negative 12/27/17 13:51 Crossmatch See Detail 12/27/17 13:51
[2017-12-28 12:51] LABS: Red Cell Distribution Width 24.1 % (13.2-15.2)
--- NOTE | 2017-12-28 13:41 | Consultation ---
History of Present Illness Consult date: 12/28/17 Consult reason: congestive heart failure History of present illness: The patient is a 77-year-old woman with a history of dilated nonischemic cardiomyopathy and chronic atrial fibrillation on Xarelto for oral anticoagulation. On a cardiac catheterization a year ago, there was normal coronary arteries, but left ventricular ejection fraction estimated at 30%. She is on medical therapy for nonischemic cardiomyopathy. She is admitted to the hospital at this time with complaints of persistent melanotic stools. On presentation, she was profoundly anemic with a hematocrit of 19. There are no specific cardiac symptoms. There is no chest pain, no shortness of breath and no edema. EKG is atrial fibrillation with well- controlled ventricular rate, no acute ST or T wave abnormalities. Past History Past Medical History: atrial fib, arthritis, heart failure, hypertension, hyperlipidemia Past Surgical History: hysterectomy, total knee replacement Social history: single, lives with family. denies: smoking, alcohol abuse, prescription drug abuse Family history: hypertension Medications and Allergies Allergies Allergy/AdvReac Type Severity Reaction Status Date / Time kiwi Allergy Swelling Verified 09/10/16 08:17 codeine AdvReac Itching Verified 09/10/16 07:19 MEDICAL TAPE Allergy Rash,ITCHIN Uncoded 09/10/16 07:18 G,SORES Home Medications Medication Instructions Recorded Confirmed Last Taken Type Atorvastatin [Lipitor] 80 mg PO QHS 02/17/16 12/27/17 12/27/17 History Furosemide [Lasix TAB] 20 mg PO QDAY 02/17/16 12/27/17 12/27/17 History Carvedilol 12.5 mg PO QDAY 12/27/17 12/27/17 12/27/17 History Potassium Chloride 10 meq PO QDAY 12/27/17 12/27/17 12/27/17 History Rivaroxaban [Xarelto] 20 mg PO QDAY 12/27/17 12/27/17 12/27/17 History Valsartan [Diovan] 320 mg PO QDAY 12/27/17 12/27/17 12/27/17 History Active Meds: Active Medications Acetaminophen (Tylenol) 650 mg PO Q4H PRN PRN Reason: Pain MILD(1-3)/Fever >100.5/CLARKE Last Admin: 12/27/17 19:18 Dose: 650 mg Acetaminophen (Tylenol) 500 mg PO Q8H PRN PRN Reason: Pain, Moderate (4-6) Albuterol (Proventil) 2.5 mg IH Q4HRT PRN PRN Reason: Shortness Of Breath Atorvastatin Calcium (Lipitor) 80 mg PO QHS [facility] Last Admin: 12/27/17 22:37 Dose: 80 mg Carvedilol (Coreg) 12.5 mg PO QDAY [facility] Furosemide (Lasix) 20 mg PO QDAY [facility] Pantoprazole Sodium 80 mg/ (Sodium Chloride) 100 mls @ 10 mls/hr IV DIRECT [facility] Lisinopril (Zestril) 20 mg PO QDAY [facility] Ondansetron HCl (Zofran) 4 mg IV Q8H PRN PRN Reason: Nausea And Vomiting Polyethylene Glycol/Electrolytes (Golytely) 2,000 ml PO Q8H [facility] Stop: 12/29/17 00:01 Potassium Chloride (K-Dur) 20 meq PO QDAY [facility] Potassium Chloride (K-Dur) 10 meq PO QDAY [facility] Sodium Chloride (Sodium Chloride Flush Syringe 10 Ml) 10 ml IV BID [facility] Last Admin: 12/27/17 22:38 Dose: 10 ml Sodium Chloride (Sodium Chloride Flush Syringe 10 Ml) 10 ml IV PRN PRN PRN Reason: LINE FLUSH Valsartan (Diovan) 320 mg PO QDAY [facility] Review of Systems Cardiovascular: shortness of breath, no chest pain, no orthopnea, no palpitations, no rapid/irregular heart beat, no edema, no syncope, no lightheadedness Physical Examination Vital Signs Temp Pulse Resp BP Pulse Ox 98.5 F 72 18 113/52 100 12/27/17 12:56 12/27/17 12:56 12/27/17 12:56 12/27/17 12:56 12/27/17 12:56 General appearance: no acute distress HEENT: Positive: PERRL Neck: Positive: neck supple Cardiac: Positive: irregularly irregular Lungs: Positive: clear to auscultation Neuro: Positive: Grossly Intact Abdomen: Positive: Soft Female genitourinary: deferred Skin: Positive: Clear Extremities: Absent: edema Results 12/28/17 11:38 12/27/17 13:03 Cardiac Enzymes 12/27/17 Range/Units 13:03 AST 32 (5-40) units/L Coagulation 12/27/17 Range/Units 15:10 PT 19.2 H (12.2-14.9) Sec. INR 1.52 H (0.87-1.13) APTT 40.6 H (24.2-36.6) Sec. CBC 12/27/17 12/28/17 Range/Units 13:03 11:38 WBC 5.6 4.8 (4.5-11.0) K/mm3 RBC 2.29 L 2.81 L (3.65-5.03) M/mm3 Hgb 6.5 L 7.9 L (10.1-14.3) gm/dl Hct 19.7 L* 23.5 L (30.3-42.9) % Plt Count 192 165 (140-440) K/mm3 Comprehensive Metabolic Panel 12/27/17 Range/Units 13:03 Sodium 141 (137-145) mmol/L Potassium 4.8 (3.6-5.0) mmol/L Chloride 107.2 H (98-107) mmol/L Carbon Dioxide 26 (22-30) mmol/L BUN 19 H (7-17) mg/dL Creatinine 0.9 (0.7-1.2) mg/dL Glucose 113 H (65-100) mg/dL Calcium 9.3 (8.4-10.2) mg/dL AST 32 (5-40) units/L ALT 26 (7-56) units/L Alkaline Phosphatase 92 (35-129) units/L Total Protein 6.0 L (6.3-8.2) g/dL Albumin 3.6 L (3.9-5) g/dL EKG interpretations - Telemetry EKG Rhythm: Atrial Fibrillation Assessment and Plan - Patient Problems (1) Pre-op evaluation Current Visit: Yes Status: Acute Plan to address problem: Patient presented with GI bleeding profound anemia, hematocrit 19. Okay to proceed with GI endoscopy. Oral anticoagulation will be discontinued at this time, and future resumption of therapy will be based on GI recommendations. (2) Nonischemic cardiomyopathy Current Visit: Yes Status: Acute Plan to address problem: Patient has no clinical evidence of fluid overload or heart failure decompensation. We'll continue medical therapy for nonischemic cardiomyopathy including afterload recent agents and beta priya therapy. (3) Chronic atrial fibrillation Current Visit: Yes Status: Acute Plan to address problem: Beta blockers for rate control of atrial fibrillation. At this time, oral anticoagulation will need to be discontinued and in this setting of GI bleed and profound anemia.
[2017-12-28 14:25] LABS: Anisocytosis 2+; Basophils % (Manual) 0 % (0.0-1.8); Hypochromasia 2+; Platelet Estimate Consistent w Auto; Poikilocytosis 1+; Total Cells Counted 100
[2017-12-28] MEDS: GOLYTELY PO SCH (16:40)
[2017-12-28] MEDS: SODIUM CHLORIDE FLUSH SYRINGE 10 ML IV SCH (22:00)
[2017-12-29] MEDS: GOLYTELY PO SCH (03:14)
[2017-12-29] MEDS: SODIUM CHLORIDE FLUSH SYRINGE 10 ML IV SCH ×2 (03:15→14:53)
[2017-12-29] MEDS ORDERED: NACL 0.9% 1000 ML 1,000 ML ONE (10:54)
--- NOTE | 2017-12-29 11:15 | Progress Note ---
Assessment and Plan Pre-op evaluation GI bleeding with profound anemia, hematocrit 19. Hx of Nonischemic cardiomyopathy [facility] 08/2016: normal coronaries, EF 30% Chronic atrial fibrillation oral anticoagulation will need to be discontinued and in this setting of GI bleed and profound anemia. beta blockers for rate control of atrial fibrillation. Continue medical therapy for nonischemic cardiomyopathy including afterload recent agents and beta priya therapy. Okay to proceed with GI endoscopy. Oral anticoagulation discontinued at this time and future resumption of therapy will be based on GI recommendations. Subjective Date of service: 12/29/17 Principal diagnosis: GI bleeding Interval history: Patient has no cardiac complaints. Awaits GI endoscopy. Objective Vital Signs Temp Pulse Resp BP Pulse Ox 12/29/17 10:59 98.6 F 79 18 158/71 100 12/29/17 07:49 98.2 F 78 20 152/78 100 12/29/17 04:42 98.5 F 73 18 150/76 99 12/28/17 23:59 98.3 F 87 18 143/86 98 12/28/17 20:26 98.4 F 92 H 18 149/70 98 12/28/17 17:00 80 12/28/17 16:16 98.6 F 18 138/64 12/28/17 12:22 98.6 F 80 18 151/74 100 - Physical Examination General: No Apparent Distress HEENT: Positive: PERRL Neck: Positive: neck supple Cardiac: Positive: irregularly irregular Lungs: Positive: Decreased Breath Sounds Neuro: Positive: Grossly Intact Extremities: Absent: edema - Labs and Meds CBC 12/28/17 Range/Units 11:38 WBC 4.8 (4.5-11.0) K/mm3 RBC 2.81 L (3.65-5.03) M/mm3 Hgb 7.9 L (10.1-14.3) gm/dl Hct 23.5 L (30.3-42.9) % Plt Count 165 (140-440) K/mm3
[2017-12-29] MEDS ORDERED: WATER FOR IRRIG STERILE IR ONE (12:20)
--- NOTE | 2017-12-29 12:34 | Anesthesia Consultation ---
Anesthesia Consult and Med Hx Date of service: 12/29/17 - Airway Anesthetic Teeth Evaluation: Poor, Dentures ROM Head & Neck: Adequate Mental/Hyoid Distance: Adequate Mallampati Class: Class I Intubation Access Assessment: Good - Pulmonary Exam CTA: Yes - Cardiac Exam Anesthetic Concerns: irregular - Pre-Operative Health Status ASA Pre-Surgery Classification: ASA3 Proposed Anesthetic Plan: MAC - Pre-Anesthesia Comment Pre-Anesthesia Comments: nonischemic cardiomyopathy EF 30% - Cardiovascular System Hx Hypertension: Yes (CHF) Hx Cardia Arrhythmia: Yes (Afib ) - Hematic Hx Anemia: Yes
--- NOTE | 2017-12-29 12:34 | Anesthesia Day of Surgery ---
Anesthesia Day of Surgery - Day of Surgery Patient Examined: Yes Patient H&P Reviewed: Yes Patient is NPO: Yes
[2017-12-29] MEDS ORDERED: AMIDATE IV ONE (12:35)
--- NOTE | 2017-12-29 13:12 | Operative Report ---
Operative Report Operative Report: Date of procedure: 12/29/2017 Procedure: Esophagogastroduodenoscopy with biopsies of the antrum and biopsies of the distal esophagus Preprocedure diagnosis: Recent melena. Patient on anticoagulation Post procedure diagnosis: Erosive antral gastritis. Irregular Z line in the esophagus suggestive of Christopher's Endoscopist: Dr. Diaz Anesthesia: Monitored anesthesia care per anesthesia department Medications: Propofol and etomidate per anesthesia Estimated blood loss: 0 After careful discussion of the nature and purpose of the procedure as well as details the technique risks benefits and alternatives consent was obtained. The patient was placed in the left lateral decubitus position and medicated per anesthesia. The tip of the L2 EQ 570 video scope was passed per orum under direct vision into the esophagus and advanced into the stomach and descending duodenum. The descending duodenum the duodenal bulb and pylorus were symmetrical and normal. The scope was withdrawn into the stomach and the stomach then gently insufflated with air. The antrum revealed a few punctate erosions. 3 biopsies were taken to assess for possible H. pylori infection. The stomach was further insufflated and the scope was then retroflexed and partially withdrawn. The cardia, fundus, and body of the stomach were within normal limits and easily distensible.no varices were present in the cardia. The scope was then withdrawn in the forward position. The esophagogastric junction was at 40 cm. The Z line was irregular suggesting short segment Christopher's. Multiple biopsies were taken from the distal esophagus just below the Z line. The esophageal body was otherwise normal throughout. The procedure was was well tolerated and the patient was observed in recovery. Impressions: Mild prepyloric antral gastritis, a possible source for blood loss on anticoagulants. 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 Plan: Await biopsy pathology. Continue PPI therapy. Further evaluation with colonoscopy for other sources of blood loss. Electronically signed: Rohan Diaz MD
--- NOTE | 2017-12-29 13:13 | Operative Report ---
Operative Report Operative Report: Date of procedure: 12/29/2017 Preprocedure diagnosis: GI bleeding manifested by melena. Patient on anticoagulation therapy Post procedure diagnosis: Normal study Procedure: Colonoscopy to the cecum Endoscopist: Dr. Diaz Anesthesia: Monitored anesthesia care per anesthesia department Estimated blood loss: 0 Medications: Monitored anesthesia care. See separate report by anesthesia for details. After careful discussion of the nature and purpose of the procedure as well as details of the technique risks benefits and alternatives the patient gave consent. Please see recent history and physical from the office. The patient was placed in the left lateral decubitus position and medicated per anesthesia. A rectal exam was performed sphincter tone was normal there were no masses palpable. The Sqwiggle 570 scope was passed transanally and advanced under continuous direct vision without difficulty to the cecum. The colon was well prepared. The cecum was normal. The ascending colon was normal and on forward and retroflexed views. The transverse colon, descending colon, and sigmoid colon were normal. The rectum was normal on forward and retroflexed views. The procedure was well-tolerated overall and the patient was observed in recovery. Conclusions: Normal colonoscopy to the cecum. Plan: Re-advance diet. May cautiously restart anticoagulation. Consideration of outpatient pill camera study. Signed electronically: Rohan Diaz M.D.
[2017-12-29] MEDS ORDERED: DIPRIVAN 10 MG/ML IV ONE (13:41)
[2017-12-29] MEDS: COREG PO SCH (14:51)
[2017-12-29] MEDS: DIOVAN PO SCH (14:51)
[2017-12-29] MEDS: K-DUR PO SCH ×2 (14:52)
[2017-12-29] MEDS: ZESTRIL PO SCH (14:53)
[2017-12-29] MEDS: LASIX PO SCH (14:53)
--- NOTE | 2017-12-29 14:54 | Progress Note ---
Assessment and Plan Assessment and plan: Patient is a 77 year old woman who presented to ED with complaints of nausea and loose black tarry stools. CHF (congestive heart failure) Stable, Continue Diuresis, strict I/O, monitor uop q shift, daily weight, Chest x ray cardiology consulted. Anemia S/P 2 units PRBC transfusion, repeat CBC stable Endoscopy Result pending. Atrial fibrillation Continue rate control, Hold anticoagulation. resumption to be determined based on cardiology GI bleed Continue IV ppi therapy, serial cbc GI following, Endoscopy and colonoscopy Report pending Hyperlipemia Continue statin therapy, low cholesterol diet Hypertension Continue at home antihypertensives, IV hydralazine PRN DVT prophylaxis SCD to BLE while in bed History Interval history: Patient seen and examined in no acute distress. family at bedside, she is s/p panendoscopy today Hospitalist Physical - Physical exam Narrative exam: General appearance: Present: no acute distress, cachectic - EENT Eyes: Present: PERRL, EOM intact ENT: hearing intact, clear oral mucosa - Neck Neck: Present: supple, normal ROM - Respiratory Respiratory effort: normal Respiratory: bilateral: CTA - Cardiovascular Rhythm: regular Heart Sounds: Present: S1 & S2 - Extremities Extremities: no ischemia, No edema - Abdominal General gastrointestinal: soft, non-tender, non-distended - Integumentary Integumentary: Present: clear, warm, dry - Psychiatric Psychiatric: appropriate mood/affect, cooperative - Constitutional Vitals: Temp Pulse Resp BP Pulse Ox 98.4 F 74 19 155/76 100 12/29/17 13:03 12/29/17 13:33 12/29/17 13:33 12/29/17 13:33 12/29/17 13:33 General appearance: Present: no acute distress, cachectic Results - Labs CBC & Chem 7: 12/28/17 11:38 12/27/17 13:03 Labs: Laboratory Last Values WBC 4.8 K/mm3 (4.5-11.0) 12/28/17 11:38 RBC 2.81 M/mm3 (3.65-5.03) L 12/28/17 11:38 Hgb 7.9 gm/dl (10.1-14.3) L 12/28/17 11:38 Hct 23.5 % (30.3-42.9) L 12/28/17 11:38 MCV 84 fl (79-97) 12/28/17 11:38 MCH 28 pg (28-32) 12/28/17 11:38 MCHC 34 % (30-34) 12/28/17 11:38 RDW 24.1 % (13.2-15.2) H 12/28/17 11:38 Plt Count 165 K/mm3 (140-440) 12/28/17 11:38 Add Manual Diff Complete 12/28/17 11:38 Total Counted 100 12/28/17 11:38 Seg Neuts % (Manual) 70.0 % (40.0-70.0) 12/28/17 11:38 Band Neutrophils % 0 % 12/28/17 11:38 Lymphocytes % (Manual) 23.0 % (13.4-35.0) 12/28/17 11:38 Reactive Lymphs % (Man) 0 % 12/28/17 11:38 Monocytes % (Manual) 6.0 % (0.0-7.3) 12/28/17 11:38 Eosinophils % (Manual) 1.0 % (0.0-4.3) 12/28/17 11:38 Basophils % (Manual) 0 % (0.0-1.8) 12/28/17 11:38 Metamyelocytes % 0 % 12/28/17 11:38 Myelocytes % 0 % 12/28/17 11:38 Promyelocytes % 0 % 12/28/17 11:38 Blast Cells % 0 % 12/28/17 11:38 Nucleated RBC % Not Reportable 12/28/17 11:38 Seg Neutrophils # Man 3.4 K/mm3 (1.8-7.7) 12/28/17 11:38 Band Neutrophils # 0.0 K/mm3 12/28/17 11:38 Lymphocytes # (Manual) 1.1 K/mm3 (1.2-5.4) L 12/28/17 11:38 Abs React Lymphs (Man) 0.0 K/mm3 12/28/17 11:38 Monocytes # (Manual) 0.3 K/mm3 (0.0-0.8) 12/28/17 11:38 Eosinophils # (Manual) 0.0 K/mm3 (0.0-0.4) 12/28/17 11:38 Basophils # (Manual) 0.0 K/mm3 (0.0-0.1) 12/28/17 11:38 Metamyelocytes # 0.0 K/mm3 12/28/17 11:38 Myelocytes # 0.0 K/mm3 12/28/17 11:38 Promyelocytes # 0.0 K/mm3 12/28/17 11:38 Blast Cells # 0.0 K/mm3 12/28/17 11:38 WBC Morphology Not Reportable 12/28/17 11:38 Hypersegmented Neuts Not Reportable 12/28/17 11:38 Hyposegmented Neuts Not Reportable 12/28/17 11:38 Hypogranular Neuts Not Reportable 12/28/17 11:38 Smudge Cells Not Reportable 12/28/17 11:38 Toxic Granulation Not Reportable 12/28/17 11:38 Toxic Vacuolation Not Reportable 12/28/17 11:38 Dohle Bodies Not Reportable 12/28/17 11:38 Pelger-Huet Anomaly Not Reportable 12/28/17 11:38 [place] Rods Not Reportable 12/28/17 11:38 Platelet Estimate Consistent w auto 12/28/17 11:38 Clumped Platelets Not Reportable 12/28/17 11:38 Plt Clumps, EDTA Not Reportable 12/28/17 11:38 Large Platelets Not Reportable 12/28/17 11:38 Giant Platelets Not Reportable 12/28/17 11:38 Platelet Satelliting Not Reportable 12/28/17 11:38 Plt Morphology Comment Not Reportable 12/28/17 11:38 RBC Morphology Not Reportable 12/28/17 11:38 Dimorphic RBCs Not Reportable 12/28/17 11:38 Polychromasia Not Reportable 12/28/17 11:38 Hypochromasia 2+ 12/28/17 11:38 Poikilocytosis 1+ 12/28/17 11:38 Anisocytosis 2+ 12/28/17 11:38 Microcytosis 1+ 12/28/17 11:38 Macrocytosis Not Reportable 12/28/17 11:38 Spherocytes Not Reportable 12/28/17 11:38 Pappenheimer Bodies Not Reportable 12/28/17 11:38 Sickle Cells Not Reportable 12/28/17 11:38 Target Cells Not Reportable 12/28/17 11:38 Tear Drop Cells Not Reportable 12/28/17 11:38 Ovalocytes Not Reportable 12/28/17 11:38 Helmet Cells Not Reportable 12/28/17 11:38 [place] Bodies Not Reportable 12/28/17 11:38 [place] Rings Not Reportable 12/28/17 11:38 Va Cells Not Reportable 12/28/17 11:38 Bite Cells Not Reportable 12/28/17 11:38 Crenated Cell Not Reportable 12/28/17 11:38 Elliptocytes Not Reportable 12/28/17 11:38 Acanthocytes (Spur) Not Reportable 12/28/17 11:38 Rouleaux Not Reportable 12/28/17 11:38 Hemoglobin C Crystals Not Reportable 12/28/17 11:38 Schistocytes Not Reportable 12/28/17 11:38 Malaria parasites Not Reportable 12/28/17 11:38 Mario Bodies Not Reportable 12/28/17 11:38 Hem Pathologist Commnt No 12/28/17 11:38 PT 19.2 Sec. (12.2-14.9) H 12/27/17 15:10 INR 1.52 (0.87-1.13) H 12/27/17 15:10 APTT 40.6 Sec. (24.2-36.6) H 12/27/17 15:10 Sodium 141 mmol/L (137-145) 12/27/17 13:03 Potassium 4.8 mmol/L (3.6-5.0) 12/27/17 13:03 Chloride 107.2 mmol/L (98-107) H 12/27/17 13:03 Carbon Dioxide 26 mmol/L (22-30) 12/27/17 13:03 Anion Gap 13 mmol/L 12/27/17 13:03 BUN 19 mg/dL (7-17) H 12/27/17 13:03 Creatinine 0.9 mg/dL (0.7-1.2) 12/27/17 13:03 Estimated GFR > 60 ml/min 12/27/17 13:03 BUN/Creatinine Ratio 21 % 12/27/17 13:03 Glucose 113 mg/dL (65-100) H 12/27/17 13:03 Calcium 9.3 mg/dL (8.4-10.2) 12/27/17 13:03 Total Bilirubin 0.20 mg/dL (0.1-1.2) 12/27/17 13:03 AST 32 units/L (5-40) 12/27/17 13:03 ALT 26 units/L (7-56) 12/27/17 13:03 Alkaline Phosphatase 92 units/L (35-129) 12/27/17 13:03 Total Protein 6.0 g/dL (6.3-8.2) L 12/27/17 13:03 Albumin 3.6 g/dL (3.9-5) L 12/27/17 13:03 Albumin/Globulin Ratio 1.5 % 12/27/17 13:03 Lipase 65 units/L (13-60) H 12/27/17 13:03 Urine Color Yellow (Yellow) 12/27/17 13:24 Urine Turbidity Clear (Clear) 12/27/17 13:24 Urine pH 5.0 (5.0-7.0) 12/27/17 13:24 Ur Specific [place] 1.017 (1.003-1.030) 12/27/17 13:24 Urine Protein <15 mg/dl mg/dL (Negative) 12/27/17 13:24 Urine Glucose (UA) Neg mg/dL (Negative) 12/27/17 13:24 Urine Ketones Neg mg/dL (Negative) 12/27/17 13:24 Urine Blood Neg (Negative) 12/27/17 13:24 Urine Nitrite Neg (Negative) 12/27/17 13:24 Urine Bilirubin Neg (Negative) 12/27/17 13:24 Urine Urobilinogen < 2.0 mg/dL (<2.0) 12/27/17 13:24 Ur Leukocyte Esterase Neg (Negative) 12/27/17 13:24 Urine WBC (Auto) 3.0 /HPF (0.0-6.0) 12/27/17 13:24 Urine RBC (Auto) 2.0 /HPF (0.0-6.0) 12/27/17 13:24 Hyaline Casts 1 /LPF 12/27/17 13:24 Urine Mucus Few /HPF 12/27/17 13:24 Blood Type O POSITIVE 12/27/17 13:51 Antibody Screen Negative 12/27/17 13:51 Crossmatch See Detail 12/27/17 13:51
[2017-12-29] MEDS: TYLENOL PO PRN (18:35)
[2017-12-30] MEDS: SODIUM CHLORIDE FLUSH SYRINGE 10 ML IV SCH ×2 (03:41→22:25)
[2017-12-30] MEDS: PROTONIX 80 MG in NACL 0.9% 100 ML IV SCH ×2 (04:51→15:23)
[2017-12-30] MEDS: NACL 0.9% 1000 ML 1,000 ML IV SCH (04:51)
[2017-12-30 06:11] LABS: Hematocrit 24.2 % (30.3-42.9); Mean Corpuscular HGB Conc 33 % (30-34); Mean Corpuscular Hemoglobin 28 pg (28-32); Mean Corpuscular Volume 84 fl (79-97); Platelet Count 163 K/mm3 (140-440); Red Blood Count 2.87 M/mm3 (3.65-5.03)
[2017-12-30 06:16] LABS: Red Cell Distribution Width 24.9 % (13.2-15.2)
[2017-12-30 06:29] LABS: BUN/Creatinine Ratio 15; Blood Urea Nitrogen 12 mg/dL (7-17); Calcium 9.2 mg/dL (8.4-10.2); Hemolysis Index 0
--- NOTE | 2017-12-30 10:55 | Gastroenterology Progress Note ---
Assessment and Plan - Patient Problems (1) Atrial fibrillation Current Visit: Yes Status: Acute Qualifiers: Atrial fibrillation type: persistent Qualified Code(s): I48.1 - Persistent atrial fibrillation (2) CHF (congestive heart failure), NYHA class I Current Visit: Yes Status: Acute (3) Hyperlipemia Current Visit: Yes Status: Acute Qualifiers: Hyperlipidemia type: mixed hyperlipidemia Qualified Code(s): E78.2 - Mixed hyperlipidemia (4) Hypertension Current Visit: Yes Status: Acute Qualifiers: Hypertension type: essential hypertension Qualified Code(s): I10 - Essential (primary) hypertension (5) GI bleed Current Visit: Yes Status: Acute Qualifiers: GI bleed type/associated pathology: unspecified gastrointestinal hemorrhage type Qualified Code(s): K92.2 - Gastrointestinal hemorrhage, unspecified Plan to address problem: No further bleeding. OK to restart Xarelto. Needs outpatient pill camera study. I will s/o and f/u PRN at this point. Thank you. Subjective Date of service: 12/30/17 Principal diagnosis: GI bleeding Interval history: Feels ok. No bleeding overnight. Objective - Constitutional Vitals: Temp Pulse Resp BP Pulse Ox 98.3 F 102 H 18 159/76 98 12/30/17 08:25 12/30/17 08:25 12/30/17 08:25 12/30/17 08:25 12/30/17 10:00 General appearance: no acute distress - EENT ENT: hearing intact, clear oral mucosa, dentition normal - Respiratory Respiratory effort: normal Respiratory: bilateral: CTA - Cardiovascular Rhythm: regular - Gastrointestinal General gastrointestinal: Present: soft, non-tender, non-distended, normal bowel sounds - Neurologic Neurological: alert and oriented x3 - Labs CBC & Chem 7: 12/30/17 05:37 12/30/17 05:37 Labs: Laboratory Results - last 24 hr 12/30/17 12/30/17 05:37 05:37 WBC 4.3 L RBC 2.87 L Hgb 8.0 L Hct 24.2 L MCV 84 MCH 28 MCHC 33 RDW 24.9 H Plt Count 163 Sodium 145 Potassium 4.2 Chloride 112.5 H Carbon Dioxide 23 Anion Gap 14 BUN 12 Creatinine 0.8 Estimated GFR > 60 BUN/Creatinine Ratio 15 Glucose 92 Calcium 9.2
[2017-12-30] MEDS: DIOVAN PO SCH (11:03)
[2017-12-30] MEDS: COREG PO SCH (11:03)
[2017-12-30] MEDS: K-DUR PO SCH ×2 (11:04)
[2017-12-30] MEDS: LASIX PO SCH (11:04)
[2017-12-30] MEDS: ZESTRIL PO SCH (11:05)
--- NOTE | 2017-12-30 12:35 | Progress Note ---
Assessment and Plan Pre-op evaluation GI bleeding with profound anemia s/p transfusion of PRBCS Hx of Nonischemic cardiomyopathy [facility] 08/2016: normal coronaries, EF 30% Chronic atrial fibrillation oral anticoagulation with xarelto held. beta blockers for rate control of atrial fibrillation. Continue medical therapy for nonischemic cardiomyopathy including afterload recent agents and beta priya therapy. Okay to resume oral anticoagulation per GI. We will initiate low dose eliqius for oral anticoagulation of chronic atrial fibrillation. Subjective Date of service: 12/30/17 Principal diagnosis: GI bleeding Interval history: Patient has no cardiac complaints. No reported bleeding overnight. Objective Vital Signs Temp Pulse Resp BP Pulse Ox 12/30/17 10:00 98 12/30/17 08:25 98.3 F 102 H 18 159/76 99 12/30/17 05:11 98.3 F 75 16 156/77 97 12/30/17 00:44 98.5 F 71 16 134/61 98 12/29/17 20:24 65 12/29/17 20:00 98.8 F 70 8 L 115/39 98 12/29/17 19:35 20 12/29/17 16:32 98.6 F 60 18 115/49 100 12/29/17 13:33 74 19 155/76 100 12/29/17 13:18 73 19 156/80 100 12/29/17 13:03 98.4 F 78 14 141/74 100 - Physical Examination General: No Apparent Distress HEENT: Positive: PERRL Cardiac: Positive: irregularly irregular Lungs: Positive: Decreased Breath Sounds Neuro: Positive: Grossly Intact Extremities: Absent: edema - Labs and Meds CBC 12/30/17 Range/Units 05:37 WBC 4.3 L (4.5-11.0) K/mm3 RBC 2.87 L (3.65-5.03) M/mm3 Hgb 8.0 L (10.1-14.3) gm/dl Hct 24.2 L (30.3-42.9) % Plt Count 163 (140-440) K/mm3 Comprehensive Metabolic Panel 12/30/17 Range/Units 05:37 Sodium 145 (137-145) mmol/L Potassium 4.2 (3.6-5.0) mmol/L Chloride 112.5 H (98-107) mmol/L Carbon Dioxide 23 (22-30) mmol/L BUN 12 (7-17) mg/dL Creatinine 0.8 (0.7-1.2) mg/dL Glucose 92 (65-100) mg/dL Calcium 9.2 (8.4-10.2) mg/dL
--- NOTE | 2017-12-30 22:17 | Progress Note ---
Assessment and Plan Assessment and plan: Patient is a 77 year old woman who presented to ED with complaints of nausea and loose black tarry stools. CHF (congestive heart failure) Stable, Continue Diuresis, strict I/O, monitor uop q shift, daily weight, Chest x ray cardiology consulted. Anemia S/P 2 units PRBC transfusion, repeat CBC stable s/P Endoscopy, monitor h/h with initiation of anticoagulation Atrial fibrillation Continue rate control, Hold anticoagulation. resumption to be determined based on cardiology GI bleed Continue IV ppi therapy, serial cbc GI following, Endoscopy and colonoscopy Report pending Hyperlipemia Continue statin therapy, low cholesterol diet Hypertension Continue at home antihypertensives, IV hydralazine PRN DVT prophylaxis SCD to BLE while in bed History Interval history: Patient seen and examined in no acute distress. family at bedside,no new bleed noted per rectum Hospitalist Physical - Physical exam Narrative exam: General appearance: Present: no acute distress, cachectic - EENT Eyes: Present: PERRL, EOM intact ENT: hearing intact, clear oral mucosa - Neck Neck: Present: supple, normal ROM - Respiratory Respiratory effort: normal Respiratory: bilateral: CTA - Cardiovascular Rhythm: regular Heart Sounds: Present: S1 & S2 - Extremities Extremities: no ischemia, No edema - Abdominal General gastrointestinal: soft, non-tender, non-distended - Integumentary Integumentary: Present: clear, warm, dry - Psychiatric Psychiatric: appropriate mood/affect, cooperative - Constitutional Vitals: Temp Pulse Resp BP Pulse Ox 97.8 F 70 18 125/55 98 12/30/17 17:18 12/30/17 20:19 12/30/17 20:19 12/30/17 20:19 12/30/17 20:19 General appearance: Present: no acute distress, cachectic - EENT ENT: other Results - Labs CBC & Chem 7: 12/30/17 05:37 12/30/17 05:37 Labs: Laboratory Last Values WBC 4.3 K/mm3 (4.5-11.0) L 12/30/17 05:37 RBC 2.87 M/mm3 (3.65-5.03) L 12/30/17 05:37 Hgb 8.0 gm/dl (10.1-14.3) L 12/30/17 05:37 Hct 24.2 % (30.3-42.9) L 12/30/17 05:37 MCV 84 fl (79-97) 12/30/17 05:37 MCH 28 pg (28-32) 12/30/17 05:37 MCHC 33 % (30-34) 12/30/17 05:37 RDW 24.9 % (13.2-15.2) H 12/30/17 05:37 Plt Count 163 K/mm3 (140-440) 12/30/17 05:37 Add Manual Diff Complete 12/28/17 11:38 Total Counted 100 12/28/17 11:38 Seg Neuts % (Manual) 70.0 % (40.0-70.0) 12/28/17 11:38 Band Neutrophils % 0 % 12/28/17 11:38 Lymphocytes % (Manual) 23.0 % (13.4-35.0) 12/28/17 11:38 Reactive Lymphs % (Man) 0 % 12/28/17 11:38 Monocytes % (Manual) 6.0 % (0.0-7.3) 12/28/17 11:38 Eosinophils % (Manual) 1.0 % (0.0-4.3) 12/28/17 11:38 Basophils % (Manual) 0 % (0.0-1.8) 12/28/17 11:38 Metamyelocytes % 0 % 12/28/17 11:38 Myelocytes % 0 % 12/28/17 11:38 Promyelocytes % 0 % 12/28/17 11:38 Blast Cells % 0 % 12/28/17 11:38 Nucleated RBC % Not Reportable 12/28/17 11:38 Seg Neutrophils # Man 3.4 K/mm3 (1.8-7.7) 12/28/17 11:38 Band Neutrophils # 0.0 K/mm3 12/28/17 11:38 Lymphocytes # (Manual) 1.1 K/mm3 (1.2-5.4) L 12/28/17 11:38 Abs React Lymphs (Man) 0.0 K/mm3 12/28/17 11:38 Monocytes # (Manual) 0.3 K/mm3 (0.0-0.8) 12/28/17 11:38 Eosinophils # (Manual) 0.0 K/mm3 (0.0-0.4) 12/28/17 11:38 Basophils # (Manual) 0.0 K/mm3 (0.0-0.1) 12/28/17 11:38 Metamyelocytes # 0.0 K/mm3 12/28/17 11:38 Myelocytes # 0.0 K/mm3 12/28/17 11:38 Promyelocytes # 0.0 K/mm3 12/28/17 11:38 Blast Cells # 0.0 K/mm3 12/28/17 11:38 WBC Morphology Not Reportable 12/28/17 11:38 Hypersegmented Neuts Not Reportable 12/28/17 11:38 Hyposegmented Neuts Not Reportable 12/28/17 11:38 Hypogranular Neuts Not Reportable 12/28/17 11:38 Smudge Cells Not Reportable 12/28/17 11:38 Toxic Granulation Not Reportable 12/28/17 11:38 Toxic Vacuolation Not Reportable 12/28/17 11:38 Dohle Bodies Not Reportable 12/28/17 11:38 Pelger-Huet Anomaly Not Reportable 12/28/17 11:38 Blair Rods Not Reportable 12/28/17 11:38 Platelet Estimate Consistent w auto 12/28/17 11:38 Clumped Platelets Not Reportable 12/28/17 11:38 Plt Clumps, EDTA Not Reportable 12/28/17 11:38 Large Platelets Not Reportable 12/28/17 11:38 Giant Platelets Not Reportable 12/28/17 11:38 Platelet Satelliting Not Reportable 12/28/17 11:38 Plt Morphology Comment Not Reportable 12/28/17 11:38 RBC Morphology Not Reportable 12/28/17 11:38 Dimorphic RBCs Not Reportable 12/28/17 11:38 Polychromasia Not Reportable 12/28/17 11:38 Hypochromasia 2+ 12/28/17 11:38 Poikilocytosis 1+ 12/28/17 11:38 Anisocytosis 2+ 12/28/17 11:38 Microcytosis 1+ 12/28/17 11:38 Macrocytosis Not Reportable 12/28/17 11:38 Spherocytes Not Reportable 12/28/17 11:38 Pappenheimer Bodies Not Reportable 12/28/17 11:38 Sickle Cells Not Reportable 12/28/17 11:38 Target Cells Not Reportable 12/28/17 11:38 Tear Drop Cells Not Reportable 12/28/17 11:38 Ovalocytes Not Reportable 12/28/17 11:38 Helmet Cells Not Reportable 12/28/17 11:38 [place] Bodies Not Reportable 12/28/17 11:38 [place] Rings Not Reportable 12/28/17 11:38 Va Cells Not Reportable 12/28/17 11:38 Bite Cells Not Reportable 12/28/17 11:38 Crenated Cell Not Reportable 12/28/17 11:38 Elliptocytes Not Reportable 12/28/17 11:38 Acanthocytes (Spur) Not Reportable 12/28/17 11:38 Rouleaux Not Reportable 12/28/17 11:38 Hemoglobin C Crystals Not Reportable 12/28/17 11:38 Schistocytes Not Reportable 12/28/17 11:38 Malaria parasites Not Reportable 12/28/17 11:38 Mario Bodies Not Reportable 12/28/17 11:38 Hem Pathologist Commnt No 12/28/17 11:38 PT 19.2 Sec. (12.2-14.9) H 12/27/17 15:10 INR 1.52 (0.87-1.13) H 12/27/17 15:10 APTT 40.6 Sec. (24.2-36.6) H 12/27/17 15:10 Sodium 145 mmol/L (137-145) 12/30/17 05:37 Potassium 4.2 mmol/L (3.6-5.0) 12/30/17 05:37 Chloride 112.5 mmol/L (98-107) H 12/30/17 05:37 Carbon Dioxide 23 mmol/L (22-30) 12/30/17 05:37 Anion Gap 14 mmol/L 12/30/17 05:37 BUN 12 mg/dL (7-17) 12/30/17 05:37 Creatinine 0.8 mg/dL (0.7-1.2) 12/30/17 05:37 Estimated GFR > 60 ml/min 12/30/17 05:37 BUN/Creatinine Ratio 15 % 12/30/17 05:37 Glucose 92 mg/dL (65-100) 12/30/17 05:37 Calcium 9.2 mg/dL (8.4-10.2) 12/30/17 05:37 Total Bilirubin 0.20 mg/dL (0.1-1.2) 12/27/17 13:03 AST 32 units/L (5-40) 12/27/17 13:03 ALT 26 units/L (7-56) 12/27/17 13:03 Alkaline Phosphatase 92 units/L (35-129) 12/27/17 13:03 Total Protein 6.0 g/dL (6.3-8.2) L 12/27/17 13:03 Albumin 3.6 g/dL (3.9-5) L 12/27/17 13:03 Albumin/Globulin Ratio 1.5 % 12/27/17 13:03 Lipase 65 units/L (13-60) H 12/27/17 13:03 Urine Color Yellow (Yellow) 12/27/17 13:24 Urine Turbidity Clear (Clear) 12/27/17 13:24 Urine pH 5.0 (5.0-7.0) 12/27/17 13:24 Ur Specific [place] 1.017 (1.003-1.030) 12/27/17 13:24 Urine Protein <15 mg/dl mg/dL (Negative) 12/27/17 13:24 Urine Glucose (UA) Neg mg/dL (Negative) 12/27/17 13:24 Urine Ketones Neg mg/dL (Negative) 12/27/17 13:24 Urine Blood Neg (Negative) 12/27/17 13:24 Urine Nitrite Neg (Negative) 12/27/17 13:24 Urine Bilirubin Neg (Negative) 12/27/17 13:24 Urine Urobilinogen < 2.0 mg/dL (<2.0) 12/27/17 13:24 Ur Leukocyte Esterase Neg (Negative) 12/27/17 13:24 Urine WBC (Auto) 3.0 /HPF (0.0-6.0) 12/27/17 13:24 Urine RBC (Auto) 2.0 /HPF (0.0-6.0) 12/27/17 13:24 Hyaline Casts 1 /LPF 12/27/17 13:24 Urine Mucus Few /HPF 12/27/17 13:24 Blood Type O POSITIVE 12/27/17 13:51 Antibody Screen Negative 12/27/17 13:51 Crossmatch See Detail 12/27/17 13:51
[2017-12-30] MEDS: ELIQUIS PO SCH (22:24)
[2017-12-31] MEDS: NACL 0.9% 1000 ML 1,000 ML IV SCH (02:50)
[2017-12-31 05:40] LABS: Hematocrit 24.4 % (30.3-42.9); Hemoglobin 7.9 gm/dl (10.1-14.3); Mean Corpuscular HGB Conc 32 % (30-34); Mean Corpuscular Hemoglobin 28 pg (28-32); Mean Corpuscular Volume 86 fl (79-97); Platelet Count 161 K/mm3 (140-440); Red Blood Count 2.83 M/mm3 (3.65-5.03)
[2017-12-31] MEDS: SODIUM CHLORIDE FLUSH SYRINGE 10 ML IV SCH ×2 (07:27→09:43)
[2017-12-31 08:44] VITALS: BP 136/63
[2017-12-31] MEDS: K-DUR PO SCH ×2 (09:41)
[2017-12-31] MEDS: ELIQUIS PO SCH (09:41)
[2017-12-31] MEDS: DIOVAN PO SCH (09:41)
[2017-12-31] MEDS: ZESTRIL PO SCH (09:41)
[2017-12-31] MEDS: COREG PO SCH (09:41)
[2017-12-31] MEDS: LASIX PO SCH (09:42)
[2017-12-31] MEDS ORDERED: PROTONIX IV SCH (10:00)
--- NOTE | 2017-12-31 10:57 | Discharge Summary ---
Providers - Providers Date of Admission: 12/27/17 15:38 Attending physician: LATHA MASON MD 12/27/17 15:44 Consult to Physician [CONS] Routine Comment: DR VELASCO NOTIFIED 1430 Consulting Provider: DEJON VELASCO Physician Instructions: Reason For Exam: gi bleed 12/27/17 18:11 Consult to Cardiology [CONS] Routine Consulting Provider: ANH CHOWDHURY Reason For Exam: chf Primary care physician: JAE STANLEY Hospitalization Condition: Critical Hospital course: Patient is a 77 year old woman who presented to ED with complaints of nausea and loose black tarry stools. CHF (congestive heart failure) Stable, Continue Diuresis, strict I/O, monitor uop q shift, daily weight, Chest x ray cardiology consulted. Anemia S/P 2 units PRBC transfusion, repeat CBC stable s/P Endoscopy, monitor h/h with initiation of anticoagulation Atrial fibrillation Continue rate control, Hold anticoagulation. resumption to be determined based on cardiology GI bleed Continue IV ppi therapy, serial cbc GI following, Endoscopy and colonoscopy Report pending Hyperlipemia Continue statin therapy, low cholesterol diet Hypertension Continue at home antihypertensives, IV hydralazine PRN DVT prophylaxis SCD to BLE while in bed Disposition: DC-01 TO HOME OR SELFCARE Exam - Physical Exam Narrative exam: General appearance: Present: no acute distress, cachectic - EENT Eyes: Present: PERRL, EOM intact ENT: hearing intact, clear oral mucosa - Neck Neck: Present: supple, normal ROM - Respiratory Respiratory effort: normal Respiratory: bilateral: CTA - Cardiovascular Rhythm: regular Heart Sounds: Present: S1 & S2 - Extremities Extremities: no ischemia, No edema - Abdominal General gastrointestinal: soft, non-tender, non-distended - Integumentary Integumentary: Present: clear, warm, dry - Psychiatric Psychiatric: appropriate mood/affect, cooperative - Constitutional Vitals: Temp Pulse Resp BP Pulse Ox 98.7 F 69 20 136/63 99 12/31/17 08:23 12/31/17 08:23 12/31/17 08:23 12/31/17 08:23 12/31/17 08:23 Plan Activity: advance as tolerated, fall precautions Diet: low cholesterol, low carbohydrate Special Instructions: record daily BP diary Follow up with: JAE STANLEY MD [Primary Care Provider] - 7 Days ADDY PANDYA MD [Staff Physician] - 7 Days MARCOS COE MD [Staff Physician] - 7 Days Prescriptions: Apixaban [Eliquis] 2.5 mg PO Q12HR #60 tablet Pantoprazole [Protonix TAB] 40 mg PO BID #60 tablet
[2018-01-01] MEDS ORDERED: PROTONIX PO SCH (10:00)
== END 2017-12-31 12:32 | disposition home or self-care (01) | DRG 378 ==
LOC: ED 12:52 → 4A 15:38
PROVIDERS: ADMIT Internal Medicine; ATTEND Internal Medicine
PROC: 30233N1 Transfusion of Nonautologous Red Blood Cells into Peripheral Vein, Percutaneous Approach (ICD-10-PCS; 2017-12-27)
PROC: 0DJD8ZZ Inspection of Lower Intestinal Tract, Via Natural or Artificial Opening Endoscopic (ICD-10-PCS; principal; 2017-12-29)
PROC: 0DB38ZX Excision of Lower Esophagus, Via Natural or Artificial Opening Endoscopic, Diagnostic (ICD-10-PCS; 2017-12-29)
PROC: 0DB78ZX Excision of Stomach, Pylorus, Via Natural or Artificial Opening Endoscopic, Diagnostic (ICD-10-PCS; 2017-12-29)
DX: K29.01 Acute gastritis with bleeding (principal); I42.0 Dilated cardiomyopathy; D64.9 Anemia, unspecified; E78.5 Hyperlipidemia, unspecified; I11.0 Hypertensive heart disease with heart failure; M19.90 Unspecified osteoarthritis, unspecified site; I48.2 Chronic atrial fibrillation; I50.9 Heart failure, unspecified; Z79.899 Other long term (current) drug therapy; Z88.5 Allergy status to narcotic agent; Z90.710 Acquired absence of both cervix and uterus; Z82.49 Family history of ischemic heart disease and other diseases of the circulatory system; Z79.01 Long term (current) use of anticoagulants
CPT/HCPCS: 36415; 80048; 80053; 81001; 83690; 85007; 85025; 85027; 85610; 85730; 86850; 86900; 86901; 86920; 88305; 88342; 93005; 93010; A9270-GY; C9113; J2704; J7030; J7040; P9016